=== PATIENT | female | born 1990 | race Caucasian/White ===

== ENCOUNTER 2022-02-12 08:29 | Outpatient (CLI) | payer OTHER, SELFPAY ==
--- NOTE | 2022-02-12 08:15 | CRLHL7_ITS ---
For Patients: As a result of the Century Cures Act, medical imaging exams and procedure reports are released immediately into your electronic medical record. You may view this report before your referring provider. If you have questions, please contact your health care provider. INDICATION: 2nd trimester anatomical survey. TECHNIQUE: Ultrasound OB pelvis transabdominal. Real-time del real-scale imaging of the fetus was performed as well as color Doppler and spectral Doppler analysis of the umbilical artery. COMPARISON: Ob ultrasound 12/02/2021. FINDINGS: Sonographic imaging demonstrates a single living intrauterine gestation. Fetus demonstrates a regular cardiac rate of 143 beats per minute. Fetus has a cephalic orientation. The placenta lies anterior without evidence of placenta previa. Placenta tip to the internal os measures 4.4 cm. Three-vessel cord with central placental insertion. Amniotic fluid volume appears normal. Single deepest pocket measures 3.3 cm. Length of closed cervix measures 3.4 cm. Biometry: Biparietal diameter: 4.0 cm, 18 week 0 day, 14% Head circumference: 15.1 cm, 18 week 1 day, 9% Abdominal circumference: 12.7 cm, 18 week 2 day, 23% Femoral length: 2.7 cm, 18 week 3 day, 21% The composite ultrasound gestational age is calculated at 18 week 3 day with an estimated sonographic due date of 07/13/2022. The weight is estimated at 233 grams, the 12.5 percentile. On anatomic survey, there is a normal appearance of the cerebral ventricles, cisterna magna and cerebellum. The nose, lips, and facial profile appear normal. The cervical, thoracic and lumbar spines are well visualized and appear normal. There is a normal four-chamber heart and the left and right ventricular outflow tracts appear normal. diaphragm, stomach, kidneys and bladder appear normal. There is a normal three-vessel cord and cord insertion site. The four extremities appear normal. IMPRESSION: 1.Single viable intrauterine . 2.No intrinsic abnormalities noted on anatomic survey. 3. Ultrasound dates from today`s exam consistent with 1st ultrasound. Dictated by Brian Starr MD @ 02/12/2022 10:23:16 AM (Electronically Signed)
--- OUTSIDE RECORDS SUMMARY | 2022-02-12 08:31 | XMS_ITS | Clinical Summary ---
:1990 Author Organization [facility] [place] [address] Care Team Providers Name Role Phone Clinic, No Pcp Or Primary Care Provider Unavailable Allergies No known active allergies Medications No known medications Active Problems No known active problems Encounters Date Type Specialty Care Team Description 02/03/2022 Hospital Encounter [facility], Temporoma ndibular jaw [facility] dysfunction Virginia Tobias, PT 02/03/2022 Travel 01/26/2022 Hospital Encounter [facility], Encounter for person encountering health services; [facility] Temporomandibular jaw dysfunction Virginia Tobias, PT 01/26/2022 Travel 01/21/2022 Hospital Encounter [facility], Encounter for person encountering health services; [facility] Temporomandibular jaw dysfunction Virginia Tobias, PT 01/21/2022 Travel 01/14/2022 Hospital Encounter [facility], Encounter for person encountering health services; [facility] Temporomandibular jaw dysfunction Virginia Tobias, PT 01/14/2022 Travel 12/29/2021 Hospital Encounter [facility], Encounter for person encountering health services; [facility] Temporomandibular jaw dysfunction Virginia Tobias, PT 12/29/2021 Travel 12/22/2021 Hospital Encounter [facility], Encounter for person encountering health services; [facility] Temporomandibular jaw dysfunction Virginia Tobias, PT 12/22/2021 Travel 12/17/2021 Hospital Encounter [facility], Encounter for person encountering health services; [facility] Temporomandibular jaw dysfunction Virginia Tobias, PT 12/17/2021 Travel 12/09/2021 Hospital Encounter [facility], Encounter for person encountering health services; [facility] Temporomandibular jaw dysfunction Virginia Tobias, PT 12/09/2021 Travel 12/03/2021 Hospital Encounter [facility], Encounter for person encountering health services; [facility] Temporomandibular jaw dysfunction Virginia Tobias, PT 12/03/2021 Travel 11/23/2021 Hospital Encounter [facility], Temporoma ndibular jaw dysfunction (Primary Dx); [facility] Encounter for person encountering health services Virginia Tobias, PT 11/23/2021 Travel from Last 3 Months Immunizations Name Administration Dates Next Due Influenza, IIV4 04/13/2019, 04/16/2018 Social History Tobacco Use Types Packs/Day Years Used Date Never Assessed Sex Assigned at Date Recorded Not on file COVID-19 Exposure Response Date Recorded In the last 10 days, have you been in contact with No / Unsu re 02/03/2022 3:57 PM CDT someone who was confirmed or suspected to have Coronavirus/COVID-19? 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 Pulse 67 05/31/2020 10:03 AM WATCH ASSEMBLY INSTRUCTOR Temperature 35.8 ??C (96.4 ??F) 05/31/2020 10:03 AM WATCH ASSEMBLY INSTRUCTOR Respiratory Rate 16 05/31/2020 10:03 AM WATCH ASSEMBLY INSTRUCTOR Oxygen Saturation 97% 05/31/2020 10:03 AM WATCH ASSEMBLY INSTRUCTOR Inhaled Oxygen Concentration - - Weight - - Height - - Body Mass Index - - Plan of Treatment Upcoming Encounters Date Type Specialty Care Team Description 03/08/2022 Appointment Virginia Tobias, PT [address] [facility] [address] [place], [place] [address] Health Maintenance Due Date Last Done Comments Tdap 2002 Depression screening for age 12+ 2003 BMI (ht and wt on same day) for age 0106/27/2009 18+ Hepatitis C screening for age 18-79 2009 Tetanus booster 2011 COVID-19 vaccine series (2 - Moderna 09/12/2020 08/15/2020 series) Influenza for age 9-49 02/11/2022 04/13/2019, 04/16/2018 Pap test for age 21-65 02/03/2024 02/02/2021, 02/02/2021, 01/31/2018 Results Not on filefrom Last 3 Months Insurance Payer Benefit Plan / Subscriber ID Effective Dates Phone Addre ss Type Group PREFERRED ONE PREFERRED ONE [id number] 2017-Present [address] [place] [address] Care Teams Insecticide Sprayer Relationship Specialty Start Date End Date Clinic, No Pcp Or PCP - General 12/29/21 .
--- OUTSIDE RECORDS SUMMARY | 2022-02-12 08:31 | XMS_ITS | Clinical Summary ---
:1990 Author Organization [facility] Address [address] [place] [address]. [place] [address] Care Team Providers Name Role Phone [facility]- Allergies No known active allergies Medications Medication Sig Dispensed Refills Start Date End Date Status Acetaminophen (TYLENOL 0 Active PO) diphenhydrAMINE Take 1 capsule 20 capsule 0 05/01/2019 Active (BENADRYL) 25 MG (25 mg) by mouth capsule every 4 hours as needed for itching or allergies Active Problems No known active problems Immunizations Name Administration Dates Next Due Influenza Vaccine IM > 6 months Valent IIV4 04/16/2018 (Alfuria,Fluzone) Family History Medical History Relation Comments Cerebrovascular Disease Father Diabetes Father Relation Status Comments Father Alive Mother Alive Sister Alive Social History Tobacco Use Types Packs/Day Years Used Date Never Smoker Smokeless Tobacco: Never Used Alcohol Use Standard Drinks/Week Comments No 0 (1 standard drink = 0.6 oz pure alcoho l) Sex Assigned at Date Recorded Not on file Last Filed Vital Signs Vital Sign Reading Time Taken Comments Blood Pressure 123/67 05/01/2019 6:30 AM OVERHEAD DOOR TECHNICIAN Pulse 73 05/01/2019 6:30 AM OVERHEAD DOOR TECHNICIAN Temperature 36.6 ??C (97.9 ??F) 05/01/2019 5:25 AM OVERHEAD DOOR TECHNICIAN Respiratory Rate 18 05/01/2019 5:25 AM OVERHEAD DOOR TECHNICIAN Oxygen Saturation 100% 05/01/2019 6:30 AM OVERHEAD DOOR TECHNICIAN Inhaled Oxygen Concentration - - Weight 66.7 kg (147 lb) 04/19/2018 3:54 PM OVERHEAD DOOR TECHNICIAN Height 165.1 cm (5' 5) 04/19/2018 3:54 PM OVERHEAD DOOR TECHNICIAN Body Mass Index 24.46 04/19/2018 3:54 PM OVERHEAD DOOR TECHNICIAN Plan of Treatment Health Maintenance Due Date Last Done Comments ADVANCE CARE PLANNING 1990 ANNUAL REVIEW OF HM ORDERS 1991 LIPID 1991 PREVENTIVE CARE VISIT 1991 COVID-19 Vaccine (#1) 1991 HIV SCREENING 2006 HEPATITIS C SCREENING 2009 DTAP/TDAP/TD IMMUNIZATION (1 2016 - Tdap) PAP 01/31/2021 01/31/2018, 01/31/2018 PHQ-2 (once per calendar 06/13/2021 04/19/2018 year) INFLUENZA VACCINE (#1) 2022 04/13/2019, 04/16/2018, 03/20/2016 HEPATITIS B IMMUNIZATION Aged Out No long er eligible based on patient's age to complete this to pic IPV IMMUNIZATION Aged Out No longer eligi ble based on patient's age to complete this to pic MENINGITIS IMMUNIZATION Aged Out No longe r eligible based on patient's age to complete this to pic Pneumococcal Vaccine: Aged Out No longer eligible based Pediatrics (0 to 5 Years) and on patient's age to At-Risk Patients (6 to 64 comple te this topic Years) Insurance Payer Benefit Plan / Subscriber ID Effective Phone Address T ype Group Dates PREFERREDONE PREFERREDONE HMO [id number] 2016-[place] [phone] [address] [address] [address] [place] [address] Care Teams Seed Production Field Supervisor Relationship Specialty Start Date End Date [facility] And PCP - General 05/01/19 [facility] [id number] [place], [place] [id number]
--- OUTSIDE RECORDS SUMMARY | 2022-02-12 08:31 | XMS_ITS | Encounter Summary ---
:1990 Author Organization [place] Address [address] [facility] [place] [address] Care Team Providers Name Role Phone Soraya Castrejon PA-C Unavailable [facility]- Reason for Visit Reason Comments Facial Swelling Encounter Details Date Type Department Care Team Description 05/01/2019 Emergency [facility] Kev Woodall, Allergic reaction, initial encounter; [facility] t MD Facial swelling; [address] [facility] EM[facility]GENC[facility] PHYSIC[facility]ANS , incidental [place], [place] [id number] [address] [address] [place] [phone] (Wo rk) Social History Tobacco Use Types Packs/Day Years Used Date Never Smoker Smokeless Tobacco: Never Used Alcohol Use Standard Drinks/Week Comments No 0 (1 standard drink = 0.6 oz pure alcoho l) Sex Assigned at Date Recorded Not on file documented as of this encounter Last Filed Vital Signs Vital Sign Reading Time Taken Comments Blood Pressure 123/67 05/01/2019 6:30 AM PERSONAL INJURY LAW SPECIALIST Pulse 73 05/01/2019 6:30 AM PERSONAL INJURY LAW SPECIALIST Temperature 36.6 ??C (97.9 ??F) 05/01/2019 5:25 AM PERSONAL INJURY LAW SPECIALIST Respiratory Rate 18 05/01/2019 5:25 AM PERSONAL INJURY LAW SPECIALIST Oxygen Saturation 100% 05/01/2019 6:30 AM PERSONAL INJURY LAW SPECIALIST Inhaled Oxygen Concentration - - Weight - - Height - - Body Mass Index - - documented in this encounter Discharge Instructions Discharge InstructionsKev Woodall MD - 05/01/2019 6:41 AM PERSONAL INJURY LAW SPECIALIST Discharge Instructions Allergic Reaction An allergic reaction can result in a rash, itching, swelling, watery eyes, or a runny nose. A serious reaction can cause swelling of your mouth or throat, or wheezing. The most serious allergy is called analphylaxis, and can be life- threatening. Many allergies result in hives, also called urticaria. An allergy happens when the body???s natural defense system (immune system) overreacts to something harmless. The thing that triggers your allergic reaction is called an allergen. The first time you are exposed to your allergen, you may not have any reaction, but the body makes a protein called an antibody. The antibody lets the body recognize and remember the allergen. Every time you are exposed to your allergen you get more antibody and your reaction can be more severe. Call 911 if you have: Swelling of the lips, tongue or throat. Hoarse voice, drooling or trouble breathing. Chest pain or shortness of breath. Fainting or unconsciousness. Return to the Emergency Department if: You develop a fever. You have significant abdominal pain. You vomit more than once. Your rash changes or looks very different. What can I do to help myself? If you know what caused your allergy, don???t touch it, throw any of it away, and tell others not tohave it around you. Wear a medical alert bracelet with a name of your allergen on it. If you don???t know what you are allergic to, keep a journal of everything that you are exposed to (foods, soaps, medicines, etc.). Take this with you when you follow up with your primary doctor. This may help determine what is causing the allergic reaction. Take any medicines that are prescribed. Antihistamines can decrease rash or itching. You may use Benadryl?? (diphenhydramine) for rash or itching according to package directions, or use a prescription antihistamine as recommended by your physician. For significant allergic reactions, you may have been given an epinephrine (adrenaline) auto injector (EpiPen??). Carry this with you at all times! Use it if you are having any symptoms of anaphylaxis.Do not be afraid to use it. Always call 911 if you use your EpiPen??! It is only meant to buy time until you can get to the Emergency Department! If you were given a prescription for medicine here today, be sure to read all of the information (including the package insert) that comes with your prescription. This will include important information about the medicine, its side effects, and any warnings that you need to know about. The pharmacist who fills the prescription can provide more information and answer questions you may have about the medicine. If you have questions or concerns that the pharmacist cannot address, please call or return to the Emergency Department. Opioid Medication Information Pain medications are among the most commonly prescribed medicines, so we are including this information for all our patients. If you did not receive pain medication or get a prescription for pain medicine, you can ignore it. You may have been given a prescription for an opioid (narcotic) pain medicine and/or have received apain medicine while here in the Emergency Department. These medicines can make you drowsy or impaired. You must not drive, operate dangerous equipment, or engage in any other dangerous activities whiletaking these medications. If you drive while taking these medications, you could be arrested for DUI, or driving under the influence. Do not drink any alcohol while you are taking these medications. Opioid pain medications can cause addiction. If you have a history of chemical dependency of any type, you are at a higher risk of becoming addicted to pain medications. Only take these prescribed medications to treat your pain when all other options have been tried. Take it for as short a time and asfew doses as possible. Store your pain pills in a secure place, as they are frequently stolen and provide a dangerous opportunity for children or visitors in your house to start abusing these powerful medications. We will not replace any lost or stolen medicine. As soon as your pain is better, you should flush all your remaining medication. Many prescription pain medications contain Tylenol?? (acetaminophen), including Vicodin??, Tylenol #3??, Boss??, Lortab??, and Percocet??. You should not take any extra pills of Tylenol?? if you are using these prescription medications or you can get very sick. Do not ever take more than 3000 mg of acetaminophen in any 24 hour period. All opioids tend to cause constipation. Drink plenty of water and eat foods that have a lot of fiber, such as fruits, vegetables, prune juice, apple juice and high fiber cereal. Take a laxative if you don???t move your bowels at least every other day. Miralax??, Milk of Magnesia, Colace??, or Senna?? can be used to keep you regular. Remember that you can always come back to the Emergency Department if you are not able to see your regular doctor in the amount of time listed above, if you get any new symptoms, or if there is anything that worries you. ONAL INJURY LAW SPECIALIST documented in this encounter Medications at Time of Discharge Medication Sig Dispensed Refills Start Date End Date diphenhydrAMINE (BENADRYL) Take 1 capsule (25 20 capsule 0 1 07/01/2018 25 MG capsule mg) by mouth every 4 hours as needed for itching or allergies Acetaminophen (TYLENOL PO) 0 documented as of this encounter ED Notes Butch Jeter RN - 05/01/2019 5:24 AM CST Here for swelling to bilateral eyelid when patient woke up this morning. Itchiness and rash to buttock, head, and neck all night. Currently 7.5weeks . Denies any oral or throat swelling. Unknown allergies. ABCs intact. ONAL INJURY LAW SPECIALIST Kev Woodall MD - 05/01/2019 5:22 AM CST History Chief Complaint: Facial Swelling HPI Akil Ramirez is a 7.5-weeks 28 year old female ( A0) who presents to the emergency department for evaluation of facial swelling. The patient reports she went to bed at around 2100 at baseline but throughout the night has developed increasing itchiness to her face, scalp, and arms, accompanied by increasing swelling to her face and eyelids. She further reports rash to her bilateral buttocks and posterior thighs, which she noted when she finally fully awoke around 0430 today. She deniesany new products, but notes she had a catered meal last night. The patient denies any difficulty breathing or swallowing. She notes she had a sore throat the past several days, but this is resolved at this time. She indicates she has not had any complications with her current . Allergies: NKDA Medications: The patient is currently on no regular medications. Past Medical History: The patient denies any significant past medical history. Past Surgical History: The patient does not have any pertinent past surgical history. Family History: Diabetes Cerebrovascular disease Social History: Presents alone. Never smoker. Negative for alcohol use. Marital Status: Single [1] Review of Systems HENT: Positive for facial swelling. Negative for sore throat and trouble swallowing. Respiratory: Negative for shortness of breath. Skin: Positive for color change and rash. All other systems reviewed and are negative. Physical Exam Patient Vitals for the past 24 hrs: BP Temp Temp src Pulse Heart Rate Resp SpO2 05/01/19 0630 123/67 -- -- 73 -- -- 100 % 05/01/19 0615 124/64 -- -- 79 -- -- 100 % 05/01/19 0600 122/75 -- -- 89 -- -- 100 % 05/01/19 0525 (!) 140/101 97.9 ??F (36.6 ??C) Temporal 102 102 18 98 % Physical Exam General: The patient is alert, in no respiratory distress. HENT: Mucous membranes moist. Eyelid swelling. Mild erythema behind pinna. Cardiovascular: Regular rate and rhythm. Good pulses in all four extremities. Normal capillary refill and skin turgor. Respiratory: Lungs are clear. No nasal flaring. No retractions. No wheezing, no crackles. Gastrointestinal: Abdomen soft. No guarding, no rebound. No palpable hernias. Nontender. Musculoskeletal: No gross deformity. Skin: No petechiae. Hives on the buttocks. Neurologic: The patient is alert and oriented x3. GCS 15. No testable cranial nerve deficit. Followscommands with clear and appropriate speech. Gives appropriate answers. Good strength in all extremities. No gross neurologic deficit. Gross sensation intact. Pupils are round and reactive. No meningismus. Lymphatic: No cervical adenopathy. No lower extremity swelling. Psychiatric: The patient is non-tearful. Emergency Department Course Interventions: 0561 Decadron 4 mg PO Benadryl 25 mg IV Emergency Department Course: Past medical records, nursing notes, and vitals reviewed. 0541 I performed an exam of the patient as documented above. We discussed medications for treatment here in the ED. 0628 I rechecked the patient and discussed the results of her workup thus far. Patient's eyelid swelling is much improved at this time following treatment in the ED. Findings and plan explained to the Patient. Patient discharged home with instructions regarding supportive care, medications, and reasons to return. The importance of close follow-up was reviewed. The patient was prescribed Benadryl. Impression & Plan Medical Decision Making: Patient is currently but I do not feel this is likely playing a part in her symptoms. She said she was up all night with a rash and itching and noted eyelid swelling. We therefore do not know the exact time that her symptoms started. There however does not appear to be any airway compromise. I discussed risks and benefits of steroids and Benadryl which she did agree to. And this did help hersymptoms quite a bit her eyelid swelling was improving there was no respiratory distress. There was still a rash on her buttocks. I did discuss the exact cause of her allergic reaction is unknown if she would need further outpatient testing. We discussed what symptoms she should return for. She was discharged home in improved condition. There is no signs of related complication. Discharge Diagnosis: ICD-10-CM 1. Allergic reaction, initial encounter T78.40XA 2. Facial swelling R22.0 3. , incidental Z33.1 Disposition: Discharged to home. Discharge Medications: Discharge Medication List as of 05/01/2019 6:44 AM START taking these medications Details diphenhydrAMINE (BENADRYL) 25 MG capsule Take 1 capsule (25 mg) by mouth every 4 hours as needed foritching or allergies, Disp-20 capsule, R-0, Local Print Scribe Disclosure: Anibal Coreas, am serving as a scribe at 5:36 AM on 05/01/2019 to document services personally performed by Kev Woodall MD based on my observations and the provider's statements to me. Kev Woodall MD 05/01/19 [id number] ONAL INJURY LAW SPECIALIST documented in this encounter Plan of Treatment Not on filedocumented as of this encounter Visit Diagnoses Diagnosis Allergic reaction, initial encounter Facial swelling Swelling, mass, or lump in head and neck , incidental state, incidental documented in this encounter Administered Medications Inactive Administered Medications - up to 3 most recent administrations Medication Order MAR Action Action Date Dose Rate Site dexamethasone (DECADRON) tablet 4 mg Given 05/01/2019 5:51 AM PERSONAL INJURY LAW SPECIALIST 4 mg 4 mg, Oral, ONCE, On Tue05/01/19 at 0547, For 1 dose diphenhydrAMINE (BENADRYL) injection 25 mg Given 05/01/2019 5:51 AM PERSONAL INJURY LAW SPECIALIST 25 mg 25 mg, Intravenous, ONCE, On Tue05/01/19 at 0547, For 1 dose, For ordered IV doses 1-50 mg, give IV Push undiluted. Give each 25mg over a minimum of 1 minute. Extend in non-emergency lidocaine (LMX4) cream Topical, EVERY 1 HOUR PRN, pain, with VA D insertion or accessing implanted port,, Starting on Tue05/01/19 at 0545, For 1 dose, Do NOT give if patient has a history of allergy to any local anesthetic or any neetu prod uct. Apply at least 30 minutes prior to VAD insertion or port a ccess. In divided doses as need for size of site for VAD insertion with MAX Dose: 2.5 g (?? of 5 g tube) lidocaine 1 % 0.1-1 mL 0.1-1 mL, Other, EVERY 1 HOUR PRN, mild pain with VAD insertion, Starting on Tue05/01/19 at 0545, Do NOT give if patient has a history of allergy to any local anesthetic or any neetu product. MAX dose 1 mL subcu taneous OR intradermal in divided doses as needed for VAD insertion. sodium chloride (PF) 0.9% PF flush 3 mL 3 mL, Intracatheter, EVERY 1 MIN PRN, li ne flush, Starting on Tue05/01/19 at 0545, for peripheral IV flush post IV meds sodium chloride (PF) 0.9% PF flush 3 mL 3 mL, Intracatheter, EVERY 8 HOURS, First dose on Tue05/01/19 at 0547, And Q1H PRN, to lock peripheral IV dormant line. documented in this encounter Active and Recently Administered Medications Times are shown in PERSONAL INJURY LAW SPECIALIST. Scheduled Medication Order 04/29/2019 04/30/2019 05/01/2019 dexamethasone (DECADRON) tablet 4 mg (COMPLETED) 0551 (Given - Provider: Dahiana Camejo, RENA) 4 mg, Oral, ONCE, Tue05/01/19 at 0547, For 1 dose diphenhydrAMINE (BENADRYL) injection 25 mg (COMPLETED) 0551 (Given - Provider: Dahiana Camejo RN) 25 mg, Intravenous, ONCE, Tue05/01/19 a t 0547, For 1 dose, For ordered IV doses 1-50 mg, give IV Push undiluted. Give each 25mg over a minimum of 1 minute. Extend in non-emergency sodium chloride (PF) 0.9% PF flush 3 mL 0547 (Canceled Entry - Provider: Orders Generic Provider - Comment: Automatically canceled at discontinue of medication order) 3 mL, Intracatheter, EVERY 8 HOURS, Firs t dose on Tue05/01/19 at 0547, And Q1H PRN, to lock peripheral IV dormant line. PRN Medication Order 04/29/2019 04/30/2019 05/01/2019 lidocaine (LMX4) cream Topical, EVERY 1 HOUR PRN, pain, with VA D insertion or accessing implanted port,, Starting Tue05/01/19 at 0545, For 1 dose, Do NOT give if patient has a history of allergy to any local anesthetic or an y neetu product. Apply at least 30 min utes prior to VAD insertion or port access. In divided doses as need for size of site for VAD insertion with MAX Dose: 2.5 g (?? of 5 g tube) lidocaine 1 % 0.1-1 mL 0.1-1 mL, Other, EVERY 1 HOUR PRN, mild pain with VAD insertion, Starting Tue05/01/19 at 0545, Do NOT give if patient has a history of allergy to any local anesthetic or any neetu product. MAX dose 1 mL subcutaneous OR intradermal in divided doses as needed for V AD insertion. sodium chloride (PF) 0.9% PF flush 3 mL 3 mL, Intracatheter, EVERY 1 MIN PRN, li ne flush, Starting Tue05/01/19 at 0545, for peripheral IV flush post IV meds documented in this encounter Care Teams Ballistic Technician Relationship Specialty Start Date End Date [facility] PCP - General 05/01/19 [id number] [place] [address] Soraya Castrejon PA-C Assigned PCP 04/30/18 04/25/21 [address] [place] [address] documented as of this encounter
--- OUTSIDE RECORDS SUMMARY | 2022-02-12 08:31 | XMS_ITS | Encounter Summary ---
:1990 Author Organization [place] Address [facility] [place] [address] Care Team Providers Name Role Phone Clinic [facility] Primary Care Provider [phone] Reason for Visit Reason Comments Eye Problem Encounter Details Date Type Department Care Team Description 04/19/2018 Office Visit [facility] Soraya Castrejon Ir ritation of left eye (Primary Dx); Clinic [facility] care [address] [place] [address] 5 [phone] Social History Tobacco Use Types Packs/Day Years Used Date Never Smoker Smokeless Tobacco: Never Used Alcohol Use Standard Drinks/Week Comments No 0 (1 standard drink = 0.6 oz pure alcoho l) Sex Assigned at Date Recorded Not on file documented as of this encounter Last Filed Vital Signs Vital Sign Reading Time Taken Comments Blood Pressure 118/68 04/19/2018 3:54 PM DOSIER OPERATOR Pulse 92 04/19/2018 3:54 PM DOSIER OPERATOR Temperature 36.8 ??C (98.2 ??F) 04/19/2018 3:54 PM DOSIER OPERATOR Respiratory Rate - - Oxygen Saturation 98% 04/19/2018 3:54 PM DOSIER OPERATOR Inhaled Oxygen Concentration - - Weight 66.7 kg (147 lb) 04/19/2018 3:54 PM DOSIER OPERATOR Height 165.1 cm (5' 5) 04/19/2018 3:54 PM DOSIER OPERATOR Body Mass Index 24.46 04/19/2018 3:54 PM DOSIER OPERATOR documented in this encounter Progress Notes Soraya Castrejon PA-C - 04/19/2018 3:40 PM CST SUBJECTIVE: Akil Ramirez is a 27 year old female who presents to clinic today for the following health issues. Acute Illness Acute illness concerns?- eye redness, cold symptoms Onset: eye redness 2 days, cold symptoms 5 days ?? Fever no ?? Chills/Sweats: no ?? Headache (location?): no ?? Sinus Pressure: no ?? Conjunctivitis: no ?? Ear Pain: Initially yes, but has resolved ?? Rhinorrhea: YES ?? Congestion: YES ?? Sore Throat: YES- at first but resolved ?? Cough: YES-productive of sputum ?? Wheeze: no ?? Decreased Appetite: no ?? Nausea: no ?? Vomiting: no ?? Diarrhea: no ?? Dysuria/Freq.: no ?? Fatigue/Achiness: YES- first couple days but has resolved ?? 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 Denies gunkiness and cannot tell if it is impeding vision.. She wears contacts daily and has not switched to glasses since symptoms presented. Initial sx was a sore throat that developed into a cough and runny nose. 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 Denies Hx of pink eye. Problem list and histories reviewed & adjusted, as indicated. Additional history: as documented There is no problem list on file for this patient. History reviewed. No pertinent surgical history. Social History Substance Use Topics ??? Smoking status: Never Smoker ??? Smokeless tobacco: Never Used ??? Alcohol use No Family History Problem Relation Age of Onset ??? Diabetes Father ??? Cerebrovascular Disease Father Current Outpatient Prescriptions Medication Sig Dispense Refill ??? trimethoprim-polymyxin b (POLYTRIM) ophthalmic solution Apply 1 drop to eye 4 times daily for 7 days 10 mL 0 ??? Acetaminophen (TYLENOL PO) No Known Allergies Reviewed and updated as needed this visit by clinical staff Tobacco Allergies Meds Problems Med Hx Surg Hx Fam Hx Soc Hx Reviewed and updated as needed this visit by Provider Tobacco Meds Problems Med Hx Surg Hx Fam Hx Soc Hx ROS: Constitutional, HEENT, cardiovascular, pulmonary, GI, , musculoskeletal, neuro, skin, endocrine and psych systems are negative, except as otherwise noted. This document serves as a record of the services and decisions personally performed and made by Soraya Castrejon, MS, PA-C. It was created on her behalf by Eneida Tolliver, a trained certified medical records coder. The creation of this document is based on the provider's statements to the certified medical records coder. Eneida Tolliver April 19, 2018 4:12 PM OBJECTIVE: BP 118/68 (BP Location: Left arm, Patient Position: Chair, Cuff Size: Adult Regular) Pulse 92 Temp 98.2 ??F (36.8 ??C) (Oral) Ht 5' 5 (1.651 m) Wt 147 lb (66.7 kg) SpO2 98% BMI 24.46 kg/m2 Body mass index is 24.46 kg/(m^2). GENERAL: healthy, alert and no distress EYES: Mild erythema of outer left conjunctiva, no mattering of upper or lower lashes, eyes grossly normal to inspection, PERRL and sclerae normal HENT: ear canals and TM's normal, nose and mouth without ulcers or lesions MS: no gross musculoskeletal defects noted, no edema SKIN: no suspicious lesions or rashes NEURO: Normal strength and tone, mentation intact and speech normal PSYCH: mentation appears normal, affect normal/bright Diagnostic Test Results: none ASSESSMENT/PLAN: Akil was seen today for eye problem. Diagnoses and all orders for this visit: Irritation of left eye Start Polytrim 1 drop to left eye 4x/daily for 7 days. Recommended to switch to her glasses until sxresolve. Informed pt eye drops may cause mattering of eyes. At night make sure to wash lids and lashes - can use baby soap for less irritiation. Right before bed use warm compress to increase blood flow to the area. Discard any make-up used that has come in contact with eye. - trimethoprim-polymyxin b (POLYTRIM) ophthalmic solution; Apply 1 drop to eye 4 times daily for 7 days Preventative health care Updating chart to [facility] No Follow-up on file. The information in this document, created by the certified medical records coder for me, accurately reflects the services I personally performed and the decisions made by me. I have reviewed and approved this document for accuracy prior to leaving the patient care area. April 19, 2018 4:12 PM Soraya Castrejon, MS, NICOL [facility] ER OPERATOR documented in this encounter Plan of Treatment Not on filedocumented as of this encounter Procedures Procedure Name Priority Date/Time Associated Diagnosis Comme nts ABSTRACT PAP (HIM Routine 01/31/2018 Preventative health car e Results for this EXTERNAL RESULT) procedure a re in the results section . documented in this encounter Results ABSTRACT PAP-NO CHARGE (01/31/2018) [facility] gist Method Time Signature PAP-ABSTRACT See Scanned Document Specimen (Source) Anatomical Location Collection Method / Collectio n Time Received Time / Laterality Volume 01/31/2018 Narrative Soraya Castrejon PA-C - 01/31/2018 Normal - [facility]- See Care Everywhere Soraya Castrejon PA-C LAB - [facility] EXTERNAL RESULT documented in this encounter Visit Diagnoses Diagnosis Irritation of left eye - Primary Other ill-defined disorder of eye Preventative health care Routine general medical examination at a health care facility documented in this encounter Care Teams Bilingual Trainer Relationship Specialty Start Date End Date [facility] PCP - General 08/02/16 04/30/19 [place] [address] documented as of this encounter
--- OUTSIDE RECORDS SUMMARY | 2022-02-12 08:31 | XMS_ITS | Encounter Summary ---
:1990 Author Organization [facility] Address [address] [place] [id number] Care Team Providers Name Role Phone Unavailable Primary Care Provider Unavailable Reason for Visit Reason Comments Sinus Problem Encounter Details Date Type Department Care Team Description 04/01/2014 Office Visit [facility] [place] RAYSHAWN Do OB TECH sinusitis (Primary Dx) [address] [place] [phone] Social History Tobacco Use Types Packs/Day Years Used Date Never Smoker Smokeless Tobacco: Never Used Alcohol Use Standard Drinks/Week Comments Yes 0 (1 standard drink = 0.6 oz pure alcoho l) Sex Assigned at Date Recorded Not on file documented as of this encounter Last Filed Vital Signs Vital Sign Reading Time Taken Comments Blood Pressure 126/64 04/01/2014 4:13 PM CDT Pulse 60 04/01/2014 4:13 PM CDT Temperature 37.2 ??C (99 ??F) 04/01/2014 4:13 PM CDT Respiratory Rate - - Oxygen Saturation 100% 04/01/2014 4:13 PM CDT Inhaled Oxygen Concentration - - Weight 62.1 kg (137 lb) 04/01/2014 4:13 PM CDT Height 166.4 cm (5' 5.5) 04/01/2014 4:13 PM CDT Body Mass Index 22.45 04/01/2014 4:13 PM CDT documented in this encounter Patient Instructions Patient Lily Mascorro NP - 04/01/2014 4:20 PM CDT Images from the original note were not included. Sinusitis What is sinusitis? Sinusitis is swollen, infected linings of the sinuses. The sinuses are hollow spaces in the bones ofyour face and skull. They connect with the nose through small openings. Like the nose, their liningsmake mucus. How does it occur? Sinusitis occurs when the sinus linings become infected. The passageways from the sinuses to the nose are very narrow. Swelling and mucus may block the passageways. This leads to pressure changes in the sinuses that can be painful. A number of things can cause swelling and sinusitis. Most often it's allergens (things that cause allergies, like pollen and mold) and viruses, such as viruses that cause the common cold. Whether the cause is allergies or a virus, the sinus linings can swell. When swelling causes the sinus passageway to swell shut, bacteria, viruses, and even fungus can be trapped in the sinuses and cause a sinus infection. If your nasal bones have been injured or are deformed, causing partial blockage of the sinus openings, you are more likely to get sinusitis. What are the symptoms? Symptoms include: feeling of fullness or pressure in your head a headache that is most painful when you first wake up in the morning or when you bend your head down or forward pain above or below your eyes aching in the upper jaw and teeth runny or stuffy nose cough, especially at night fluid draining down the back of your throat (postnasal drainage) sore throat in the morning or evening. How is it diagnosed? Your healthcare provider will ask about your symptoms and will examine you. You may have an X-ray tolook for swelling, fluid, or small benign growths (polyps) in the sinuses. How is it treated? Decongestants may help. They may be nonprescription or prescription. They are available as liquids, pills, and nose sprays. Your healthcare provider may prescribe an antibiotic. In some cases you may need to take decongestants and antibiotics for several weeks. You may need nonprescription medicine for pain, such as acetaminophen or ibuprofen. Check with your healthcare provider before you give any medicine that contains aspirin or salicylates to a child or teen. This includes medicines like baby aspirin, some cold medicines, and Pepto Bismol. Children and teens who take aspirin are at risk for a serious illness called Clarita's syndrome. Ibuprofen is an NSAID. Nonsteroidal anti-inflammatory medicines (NSAIDs) may cause stomach bleeding and other problems. These risks increase with age. Read the label and take as directed. Unless recommended by your healthcare provider, do not take NSAIDs for more than 10 days for any reason. If you have chronic or repeated sinus infections, allergies may be the cause. Your healthcare provider may prescribe antihistamine tablets or prescription nasal sprays (steroids or cromolyn) to treat the allergies. If you have chronic, severe sinusitis that does not respond to treatment with medicines, surgery maybe done. The surgeon can create an extra or enlarged passageway in the wall of the sinus cavity. This allows the sinuses to drain more easily through the nasal passages. This should help them stay freeof infection. How long will the effects last? Symptoms may get better gradually over 3 to 10 days. Depending on what caused the sinusitis and how severe it is, it may last for days or weeks. The symptoms may come back if you do not finish all of your antibiotic. How can I take care of myself? Follow your healthcare provider's instructions. If you are taking an antibiotic, take all of it as directed by your provider. If you stop taking themedicine when your symptoms are gone but before you have taken all of the medicine, symptoms may come back. Avoid tobacco smoke. If you have allergies, take care to avoid the things you are allergic to, such as animal dander. Add moisture to the air with a humidifier or a vaporizer, unless you have mold allergy (mold may grow in your vaporizer). Inhale steam from a basin of hot water or shower to help open your sinuses and relieve pain. Use saline nasal sprays to help wash out nasal passages and clear some mucus from the airways. Use decongestants as directed on the label or by your provider. If you are using a nonprescription nasal-spray decongestant, generally you should not use it for more than 3 days. After 3 days it may cause your symptoms to get worse. Ask your healthcare provider if it is OK for you to use a nasal spray decongestant longer than this. Get plenty of rest. Drink more fluids to keep the mucus as thin as possible so your sinuses can drain more easily. Put warm compresses on painful areas. Take antibiotics as prescribed. Use all of the medicine, even after you feel better. Some sinus infections require 2 to 4 weeks of antibiotic treatment. See your healthcare provider if the pain lasts for several days or gets worse. If the sinus areas above or below your eyes are swollen or bulging, see your healthcare provider right away. This symptom may mean that the infection is spreading. A spreading infection can affect other parts of your body--even the brain--and needs to be treated promptly. How can I help prevent sinusitis? Treat your colds and allergies promptly. Use decongestants as soon as you start having symptoms. Do not smoke and stay away from secondhand smoke. Drink lots of fluids to keep the mucus thin. Humidify your home if the air is particularly dry. If you have sinus infections often, consider having allergy tests. If sinusitis continues to be a problem despite treatment, you might need an exam by an ear, nose, and throat doctor (called an ENT or segment producer). The specialist will check for polyps or a deformed bone that may be blocking your sinuses. Published by [employer]. This content is reviewed periodically and is subject to change as new health information becomes available. The information is intended to inform and educate and is not a replacement for medical evaluation, advice, diagnosis or treatment by a healthcare professional. Developed by [employer]. ? 2010 [employer] and/or its affiliates. All Rights Reserved. Copyright ?? [employer] 2011 Adult Health Advisor documented in this encounter Progress Notes Lily Emanuel NP - 04/01/2014 1:49 PM CDT SUBJECTIVE: Akil Gibbons is a 23 year old female who presents to clinic today for the following health issues: Acute Illness Acute illness concerns?- Sinus problem Onset: x2.5-3 weeks ?? Fever: YES- 99.0 today ?? Chills/Sweats: YES- prior to last week ?? Headache (location?): YES- possibly from coughing ?? Sinus Pressure:YES ?? Conjunctivitis: no ?? Ear Pain: no ?? Rhinorrhea: YES- yellow ?? Congestion: YES- head - chest in morning ?? Sore Throat: no ?? Cough: YES-productive of yellow sputum, productive of green sputum, worsening over time ?? Wheeze: no ?? Decreased Appetite: no ?? Nausea: no ?? Vomiting: YES- 1 time from coughing ?? Diarrhea: no ?? Dysuria/Freq.: no ?? Fatigue/Achiness: YES- both ?? Sick/Strep Exposure: YES- pneumonia, bronchitis Therapies Tried and outcome: allergy med, cough syrup- no relief Problem list and histories reviewed & adjusted, as indicated. Additional history: as documented There is no problem list on file for this patient. History reviewed. No pertinent past surgical history. History Substance Use Topics ??? Smoking status: Never Smoker ??? Smokeless tobacco: Never Used ??? Alcohol Use: Yes Family History Problem Relation Age of Onset ??? Diabetes Father ??? Stroke Father Current Outpatient Prescriptions Medication Sig Dispense Refill ??? levonorgestrel-ethinyl estradiol (AVIANE,ALESSE,LESSINA) 0.1-20 MG-MCG per tablet Take 1 tablet by mouth daily 3 Package 3 ??? amoxicillin-clavulanate (AUGMENTIN) 875-125 MG per tablet Take 1 tablet by mouth 2 times daily 20 tablet 0 No Known Allergies No results found for this basename: A1C, LDL, HDL, TRIG, ALT, CR, GFRESTIMATED, GFRESTBLACK, MICROALBUMIN, POTASSIUM, TSH, in the last [id number] hours BP Readings from Last 3 Encounters: 04/01/14 126/64 Wt Readings from Last 3 Encounters: 04/01/14 137 lb (62.143 kg) Labs reviewed in [facility] Problem list, Medication list, Allergies, and Medical/Social/Surgical histories reviewed in [facility] andupdated as appropriate. ROS: C: NEGATIVE for fever, chills, change in weight E/M: NEGATIVE for ear, mouth and throat problems R: NEGATIVE for significant cough or SOB CV: NEGATIVE for chest pain, palpitations or peripheral edema OBJECTIVE: BP 126/64 Pulse 60 Temp(Src) 99 ??F (37.2 ??C) (Oral) Ht 5' 5.5 (1.664 m) Wt 137 lb (62.143kg) BMI 22.44 kg/m2 SpO2 100% ? No Body mass index is 22.44 kg/(m^2). GENERAL: healthy, alert, well nourished, well hydrated, no distress HENT: ear canals- normal; TMs- normal; Nose- normal; Mouth- no ulcers, no lesions NECK: no tenderness, no adenopathy, no asymmetry, no masses, no stiffness; thyroid- normal to palpation RESP: lungs clear to auscultation - no rales, no rhonchi, no wheezes CV: regular rates and rhythm, normal S1 S2, no S3 or S4 and no murmur, no click or rub - PSYCH: Alert and oriented times 3; speech- coherent , normal rate and volume; able to articulate logical thoughts, able to abstract reason, no tangential thoughts, no hallucinations or delusions, affect- normal LYMPHATICS: ant. cervical- normal, post. cervical- normal, axillary- normal, supraclavicular- normal, inguinal- normal Diagnostic test results: none ASSESSMENT/PLAN: Akil was seen today for sinus problem. Diagnoses and associated orders for this visit: Acute maxillary sinusitis - amoxicillin-clavulanate (AUGMENTIN) 875-125 MG per tablet; Take 1 tablet by mouth 2 times daily See Patient Instructions Augmentin, symptomatic treatment. Return to clinic if no improvement or symptoms worsen. Patient verbalized understanding & agreed with plan of care. Lily Emanuel RN, [facility] documented in this encounter Nursing Notes Mu Uribe CMA - 04/01/2014 4:14 PM CDT Chief Complaint Patient presents with ??? Sinus Problem Initial BP 126/64 Pulse 60 Temp(Src) 99 ??F (37.2 ??C) (Oral) Ht 5' 5.5 (1.664 m) Wt 137 lb(62.143 kg) BMI 22.44 kg/m2 SpO2 100% ? No Estimated body mass index is 22.44 kg/(m^2) as calculated from the following: Height as of this encounter: 5' 5.5 (1.664 m). Weight as of this encounter: 137 lb (62.143 kg). BP completed using cuff size: regular Mu Uribe CMA documented in this encounter Plan of Treatment Not on filedocumented as of this encounter Visit Diagnoses Diagnosis Acute maxillary sinusitis - Primary documented in this encounter
--- OUTSIDE RECORDS SUMMARY | 2022-02-12 08:31 | XMS_ITS | Encounter Summary ---
:1990 Author Organization [place] Address [facility] 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 ([id number]) Encounter Details Date Type Department Care Team Description 08/09/2016 Hospital Encounter [facility] Eulogio Bashir MD [facility] [address] [place], [place] [id number] Rehabilitation Services Marlena Thacker, PT [facility] [address] [place] [address] Social History Tobacco Use Types Packs/Day Years Used Date Never Smoker Smokeless Tobacco: Never Used Alcohol Use Standard Drinks/Week Comments No 0 (1 standard drink = 0.6 oz pure alcoho l) Sex Assigned at Date Recorded Not on file documented as of this encounter Medications at Time of Discharge Medication Sig Dispensed Refills Start Date End Date Acetaminophen (TYLENOL 0 PO) levonorgestrel-ethinyl Take 1 tablet by 3 Package 3 014 04/19/2018 estradiol mouth daily (AVIANE,ALESSE,LESSINA) 0.1-20 MG-MCG per tablet meclizine (ANTIVERT) 25 Take 1 tablet (25 30 tablet 1 08/0204/19/2018 MG tablet mg) by mouth every 6 hours as needed for dizziness Ondansetron HCl (ZOFRAN 0 1 06/19/2017 PO) documented as of this encounter Progress Notes Marlena Thacker, PT - 08/09/2016 11:59 PM CST 08/09/16 1500 Signing Clinician's Name / Credentials Signing clinician's name / credentials Marlena Thacker PT, DPT Session Number Session Number DISCHARGE: Episode of care 08/02/16-08/09/16. Pt participated in 2 vestibular PT visitsincluding evaluation to address L BPPV. See note below for details of final visit. Adult Goals PT Eval Goals 1;2;3 Goal 1 Goal Identifier DHI (baseline 88/100) Goal Description Pt to score 0/100 per DHI with resolved sxs of dizziness >/= 24-28 hours. Target Date 08/24/16 Date Met 08/09/16 (0/100) Goal 2 Goal Identifier BPPV Goal Description Pt will demonstrate (-) s/s of BPPV throughout positional testing of all canals. Target Date 08/24/16 Date Met 08/09/16 Goal 3 Goal Identifier 4 item DGI (baseline: 02/22 = inc risk for falls) Goal Description Patient will have improved score on 4 item DGI to 05/24 indicating reduced fall risk for greater safety with community ambulation. Target Date 08/24/16 Date Met (progress made, 04/24) Subjective Report Subjective Report No vertigo since last seen. Reports 1 episode of lightheadedness last Tuesday, going to school for work-prep and needed to leave. Pts called therapist within 48 hours of PT treatment reporting spouse c/o orbital SYKES, no dizziness. Pt reports accompanied sxs of slurred speech that has now has gotten better but toward end of night needs to focus on speech with fatigue. Pt reports it is hard for eyes to focus but that has gotten better. Denies double vision. Reports balance hasimproved but is not her baseline yet, occasionally legs cross ea other without LOB but needs to focus on balance. Pt received MRI on Tuesday which came back negative. She didn???t return to work last week. She meets with neurologist as f/u this week. Returned to work 1/2 day today and went well. Objective Measures Objective Measures Objective Measure 1;Objective Measure 2 Objective Measure 1 Objective Measure 4 item DGI Details 04/24 System Outcome Measures Outcome Measures BPPV Dizziness Handicap Inventory (score out of 100) A decrease in score by 17.18 or greater indicates a clinically significant change in symptoms. 0 Treatment Interventions Interventions Neuromuscular Re-education Neuromuscular Re-education Skilled Intervention set-up, cues for reassessments, feedback on progress towards goals and education (below) Patient Response (as indicated) Treatment Detail IR exam, OM exam. DVA assessment. DGI. romberg foam EO: 30 sec, EC: 6-7 sec Progress 2/3 goals met. Positional testing consistant with resolved BPPV. (-) central signs with OM and balance assessments. Significant progress made towards improved gait stability, continues to veerslightly with head turns Oculomotor Exam Smooth Pursuit Normal Saccades Normal Rapid Head Thrust Normal Infrared Goggle Exam or Frenzel Lense Exam Vestibular Suppressant in Last 24 Hours? No Exam completed with Infrared Goggles Spontaneous Nystagmus Negative Gaze Evoked Nystagmus Other (end gaze nystagmus (WNL)) Head Shake Horizontal Nystagmus Negative Positional testing Negative [place]-Hallpike (right) Negative [place]-Hallpike (Left) Negative HSCC Supine Roll Test (Right) Negative HSCC Supine Roll Test (Left) Negative Dynamic Visual Acuity (DVA) DVA Comments 2 line difference WNL no dizziness Education Learner Patient Readiness Acceptance Method Explanation;Demonstration Response Verbalizes Understanding;Demonstrates Understanding Education Comments education on balance systems and continuing balance and walking exercises with inc input to vestibular system towards continued improved balance. should sxs of vertigo return f/u with MD for order t oreturn to therapy. approriate for d/c at this time Plan Home program romberg foam EC, walking with head turns and pitches Updates to plan of care d/c Total Session Time Total Treatment Time (sum of timed and untimed services) 40 ICE CLERK documented in this encounter Miscellaneous Notes Addendum Note - Marlena Thacker, PT - 08/09/2016 11:59 PM INVOICE CLERK Encounter addended by: Marlena Thacker, PT on: 07/08/2018 7:12 PM Actions taken: Sign clinical note, Flowsheet accepted, Episode resolved ICE CLERK documented in this encounter Plan of Treatment Not on filedocumented as of this encounter Visit Diagnoses Not on filedocumented in this encounter Care Teams Diamond Merchant Relationship Specialty Start Date End Date [employer], [facility] PCP - General 08/02/16 04/30/19 [id number] [place] [address] documented as of this encounter
--- OUTSIDE RECORDS SUMMARY | 2022-02-12 08:31 | XMS_ITS | Encounter Summary ---
:1990 Author Organization [facility] Address [address] [place] [address]. 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 HELPER Reason for Visit Reason Comments Headache Nausea & Vomiting Encounter Details Date Type Department Care Team Description 08/02/2016 Emergency [facility] Leoncio Bashir MD Vertigo Emergency Dept [facility] [address] [place] [address] [facility] [phone] [place], [place] [id number] (Wo rk) Social History Tobacco Use Types Packs/Day Years Used Date Never Smoker Smokeless Tobacco: Never Used Alcohol Use Standard Drinks/Week Comments No 0 (1 standard drink = 0.6 oz pure alcoho l) Sex Assigned at Date Recorded Not on file documented as of this encounter Last Filed Vital Signs Vital Sign Reading Time Taken Comments Blood Pressure 122/73 08/02/2016 8:16 AM CLOTH SHRINKING MACHINE OPERATOR HELPER Pulse 77 08/02/2016 8:16 AM CLOTH SHRINKING MACHINE OPERATOR HELPER Temperature 37.1 ??C (98.7 ??F) 08/02/2016 8:16 AM CLOTH SHRINKING MACHINE OPERATOR HELPER Respiratory Rate 18 08/02/2016 8:16 AM CLOTH SHRINKING MACHINE OPERATOR HELPER Oxygen Saturation 100% 08/02/2016 8:16 AM CLOTH SHRINKING MACHINE OPERATOR HELPER Inhaled Oxygen Concentration - - Weight 63.5 kg (140 lb) 08/02/2016 8:16 AM [facility] SHRINKING MACHINE OPERATOR HELPER Height 165.1 cm (5' 5) 08/02/2016 8:16 AM [facility]OTH SHRINKING MACHINE OPERATOR HELPER Body Mass Index 23.3 08/02/2016 8:16 AM [facility] SHRINKING MACHINE OPERATOR HELPER documented in this encounter Discharge Instructions Discharge InstructionsLeoncio Bashir MD - 08/02/2016 11:16 AM CLOTH SHRINKING MACHINE OPERATOR HELPER Images from the original note were not included. Vertigo (Unknown Cause) In addition to helping with hearing, the inner ear is part of the balance center of your body. Problems with the inner ear can a false feeling of motion.??This is called vertigo. Often, it feels as if you or the room is spinning. A vertigo attack may cause sudden nausea, vomiting and heavy sweating. Severe vertigo causes a loss of balance and can cause you to fall. During vertigo, small head movements and changes in body position will often make the symptoms worse. You may also have ringing in the ears called tinnitus. An episode of vertigo may last seconds, minutes or hours. Once you are over the first episode, it may never come back. However, symptoms may return off and on. The cause of your vertigo is not yet known.??Possible causes of vertigo include: ?? Inflammation of the inner ear ?? Disease of the nerves to the inner ear ?? Movement of calcium particles in the inner ear ?? Poor blood flow to the balance centers of the brain ?? Migraine headaches Home care ?? If symptoms are severe, rest quietly in bed. Change positions very slowly. There is usually one position that will feel best, such as lying on one side or lying on your back with your head slightly raised on pillows. ?? Do not drive??a car??or work with dangerous machinery until symptoms have been gone for at least one week. ?? Take medicine as prescribed to relieve your symptoms. Unless another medicine was prescribed for symptoms of nausea, vomiting, and dizziness, you may use zspo-obt-xmblhlm motion sickness pills.??Askyour pharmacist for suggestions. Follow-up care Follow up with your healthcare provider or as directed. If you are referred to a specialist or for testing, make the appointment promptly. When to seek medical advice Call your healthcare provider if any of the following occur: ?? Fever of 100.4??F (38??C) or higher, or as directed by your healthcare provider ?? Vertigo worsens or is not controlled by??prescribed??medicine? Repeated vomiting not relieved by prescribed??medicine? Severe headache ?? Confusion ?? Weakness of an arm or leg or one side of the face ?? Difficulty with speech or vision ?? Loss of consciousness? Seizure ?? [id number] [employer] [place] [address]. All rights reserved. This information is not intended as a substitute for professional medical care. Always follow your healthcare professional's instructions. H SHRINKING MACHINE OPERATOR HELPER documented in this encounter Medications at Time [...] 06/19/2017 PO) documented as of this encounter ED Notes Amanda Mcpherson, RENA - 08/02/2016 10:38 AM CST Ambulated patient in [place], stated she felt week but better. Patient did vomit. H SHRINKING MACHINE OPERATOR HELPER Ann Marie Cano RN - 08/02/2016 8:14 AM CST Pt has been vomiting in the morning X 4 days. Pt also c/o feeling lightheaded. Pt was seen in on Tuesday and given zofran without relief. Pt report spinning and headache. Pt denies possibility of . Pt took zofran at home without relief. H SHRINKING MACHINE OPERATOR HELPER Leoncio Bashir MD - 08/02/2016 7:58 AM CST History Chief Complaint: Headache, Dizziness, Nausea, and Vomiting HPI Akil Ramirez is a 26 year old female who presents to the emergency department for evaluation of headache, nausea, vomiting, and dizziness. The patient states that she has a sore throat as of late and was seen on 07/29 in urgent care, where she had a negative strep test, found to have a sinus infection, and was prescribed amoxicillin. Following this visit, the patient states that she developed a headache with associated dizziness and nausea with vomiting the following day, which has been present since onset. The patient notes that her dizziness is exacerbated by movements of her head. She was againseen at urgent care, where she was found to have vertigo, had an Junior maneuver, was told to stop taking the amoxicillin, and prescribed Zofran ODT, which she has been taking with little relief of her nausea. When her dizziness, headache, and nausea continued this morning, she decided to seek evaluation here in the emergency department. She denies any recent injury to her head or neck or chiropracticmanipulation of her head or neck. Allergies: NKDA Medications: levonorgestrel-ethinyl estradiol Zofran Past Medical History: The patient denies any significant past medical history. Past Surgical History: diabetes mellitus Migraines Family / Social History: No past pertinent family history. Social History: Presents with her . Negative for tobacco use. Negative for alcohol use. Marital Status: Review of Systems HENT: Positive for sore throat. Gastrointestinal: Positive for nausea and vomiting. Neurological: Positive for dizziness and headaches. All other systems reviewed and are negative. Physical Exam Patient Vitals for the past 24 hrs: BP Temp Temp src Pulse Resp SpO2 Height Weight 08/02/16 0816 122/73 98.7 ??F (37.1 ??C) Oral 77 18 100 % 1.651 m (5' 5) 63.5 kg (140 lb) Physical Exam General: Patient is alert and interactive when I enter the room. She appears in moderate distress. Head: The scalp, face, and head appear normal Eyes: No photophobia. Conjunctivae and sclerae are normal ENT: External acoustic canals are normal The oropharynx is normal without erythema. Uvula is in the midline Neck: Normal range of motion CV: Regular rate. S1/S2. No murmurs. Resp: Lungs are clear without wheezes or rales. No distress GI: Abdomen is soft, no rigidity, guarding, or rebound No distension. No tenderness to palpation in any quadrant. MS: Normal tone. Joints grossly normal without effusions. No asymmetric leg swelling, calf or thigh tenderness. Normal motor assessment of all extremities. There is no cervical paraspinal tenderness. Skin: No rash or lesions noted. Normal capillary refill noted Neuro: Speech is normal and fluent. Face is symmetric without droop. Moving all extremities well. CN's II-XII intact. 5/5 UE and LE strength. PERRLA. EOMI without nystagmus. Reflexes symmetric. Sensation intact to light touch. Negative pronator drift. Finger to nose intact from a pronator drift position. Psych: Awake. Alert. Normal affect. Appropriate interactions. Lymph: No anterior cervical lymphadenopathy noted Emergency Department Course Interventions: 0920 Meclizine 25 mg PO 1111 Zofran-ODT 8mg disintegrating tablet PO Emergency Department Course: Nursing notes and vitals reviewed. I performed an exam of the patient as documented above. 0820 We attempted to contact physical therapy here in the ED, though they not in clinic today. Patient will be given outpatient referral to PT. 1004 I rechecked the patient regarding her current symptoms. Junior maneuver done with head [id number] degrees left. Repeated x 1. 1041 The patient was ambulated here in the emergency department. She states that her dizziness is essentially resolved, but she had an episode of vomiting. 1121 I reevaluated the patient and provided an update in regards to her ED course. She is feeling improved at this time and is able to ambulate without dizziness or vomiting. Findings and plan explained to the Patient. Patient discharged home with instructions regarding supportive care, medications, and reasons to return. The importance of close follow-up was reviewed. The patient was prescribed Meclizine. Impression & Plan Medical Decision Making: Akil Ramirez is a 26 year old female who presents for evaluation of vertigo. The differential diagnosis of vertigo is broad and includes common etiologies such as menieres disease, labyrinthitis, benign positional vertigo, otitis media, etc. More serious etiologies considered include central etiologies such as tumor, intracerebral bleed, dissection, ischemic cerebral vascular accident. The history, physical exam including detailed neurologic exam, and workup in the emergency room suggests a benign cause of vertigo today. Patient feels improved after interventions noted above. Further outpatient management is indicated with vertigo medications. No indication for advanced imaging at this point (CT/MRI) as there are no definite signs of a central and concerning etiology for the vertigo. Vertigo precautions given for home. See vestibular PT today or tomorrow as still mild symptoms afterEpley maneuver here in ED. Diagnosis: ICD-10-CM 1. Vertigo R42 Disposition: discharged to home Discharge Medications: New Prescriptions MECLIZINE (ANTIVERT) 25 MG TABLET Take 1 tablet (25 mg) by mouth every 6 hours as needed for dizziness IYvette am serving as a scribe on 08/02/2016 at 8:43 AM to personally document services performed by Leoncio Bashir MD based on my observations and the provider's statements to me. Yvette Reid 08/02/2016 [facility] EMERGENCY [facility]PART[facility] Leoncio Bashir MD 08/02/16 1223 H SHRINKING MACHINE OPERATOR HELPER documented in this encounter Plan of Treatment Scheduled Referrals Name Type Priority Associated Diagnoses Order S [facility] PHYSICAL THERAPY REFERRAL Referral Routine Vertigo Or dered: 08/02/2016 documented as of this encounter Visit Diagnoses Diagnosis Vertigo Dizziness and giddiness documented in this encounter Administered Medications Inactive Administered Medications - up to 3 most recent administrations Medication Order MAR Action Action Date Dose Rate Site meclizine (ANTIVERT) tablet 25 mg Given 08/02/2016 9:20 AM CLOTH SHRINKING MACHINE OPERATOR HELPER 25 mg 25 mg, Oral, ONCE, On Tue08/02/16 at 0857, For 1 dose ondansetron (ZOFRAN-ODT) ODT tab 8 mg Given 08/02/2016 11:11 AM CL[facility] SHRINKING MACHINE OPERATOR HELPER 8 mg 8 mg, Oral, ONCE, On Tue08/02/16 at 1037, For 1 dose documented in this encounter Active and Recently Administered Medications Times are shown in CLOTH SHRINKING MACHINE OPERATOR HELPER. Scheduled Medication Order 07/31/2016 08/01/2016 08/02/2016 meclizine (ANTIVERT) tablet 25 mg (COMPLETED) 0920 (Given - Provider: Amanda Mcpherson RN) 25 mg, Oral, ONCE, 08/02/16 at 0857, For 1 dose ondansetron (ZOFRAN-ODT) ODT tab 8 mg (COMPLETED) 1111 (Given - Provider: Amanda Mcpherson RN) 8 mg, Oral, ONCE, 08/02/16 at 1037, For 1 dose documented in this encounter Care Teams Production Utility Worker Relationship Specialty Start Date End Date Clinic, [facility] PCP - General 08/02/16 04/30/19 [place] [address] documented as of this encounter
--- OUTSIDE RECORDS SUMMARY | 2022-02-12 08:31 | XMS_ITS | Encounter Summary ---
:1990 Author Organization [place] Address [facility] [place] [address] Care Team Providers Name Role Phone [facility] Primary Care Provider [phone] Reason for Visit Rehab Therapy Integrated Services - Closed Specialty Diagnoses / Procedures Referred By Contact Refer red To Contact Diagnoses Vertigo [facility] [address] [place], [place] [address] Phone: Fax: Referral ID Status Reason Start Date Expiration Date Visits V isits Requested Authorized [facility] - Closed 08/02/2016 06/12/2017 365 365 PT/OT/PASSENGER REPRESENTATIVE ([id number]) Encounter Details Date Type Department Care Team Description 08/02/[address] [facility] Eulogio Bashir MD [facility] [address] [place], [place] [address] Rehabilitation Services Marlena Thacker, PT [facility] [address] [place] [address] Social History Tobacco Use Types [...] encounter Progress Notes Marlena Thacker, PT - 08/02/2016 11:59 PM CST 08/02/16 1400 Quick Adds Quick Adds Vestibular Eval Type of Visit Initial OP PT Evaluation General Information Start of Care Date 08/02/16 Referring Physician Leoncio Bashir MD Orders Evaluate and Treat as Indicated Order Date 08/02/16 Medical Diagnosis Vertigo Onset of illness/injury or Date of Surgery 07/30/16 Precautions/Limitations no known precautions/limitations Surgical/Medical history reviewed Yes Pertinent history of current problem (include personal factors and/or comorbidities that impact the POC) Presented to ED this morning with sxs of SYKES, nausea, vomiting and dizziness. She was seen in urgent care for sore throat 07/29/16 and found to have a sinus infection, and prescribed amoxicillin. She developed a SYKES and associated dizziness and nausea with vomiting the following day which has continued for the past 3 days. She was seen again in urgent care Tuesday and stopped taking Amoxicillin, prescribed Zofran with she has been taking without relief of nausea. Her dizziness, SYKES and nausea continued this morning and had another f/u in ED. Junior maneuver performed x2 with pt reporting vomiting with improved sxs of dizziness following and prescribed Meclizine. Pt currently reports feeling lightheaded and mild SYKES above eyes in upright sitting, feeling the best she has in the past 3 days, she hasnot been able to tolerate being upright. Reports feeling comfortable when laying and closing her eyes. Describes sxs of dizziness as intermittent, short duration vertigo with positional changes, particularly when bending over, reaching up, and turning in bed. Sxs accompanied by a strong sense of instability, holding dash of house and using spouse for support. Motion sensitive when riding in car, hasnot been driving. She denies injury to head or neck. No hx of Migraines, or concussions. She last took Meclizine this morning when received from the ED. 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 No Per patient - Fall with injury in past year? No Timed Up and Go score (seconds) n/t (see 4 item DGI) Is patient a fall risk? Yes System Outcome Measures Outcome Measures BPPV Dizziness Handicap Inventory (score out of 100) A decrease in score by 17.18 or greater indicates a clinically significant change in symptoms. 88 (severe perception of handicap) At end of session, is nystagmus present that is mill representative of a BPPV pattern with positional testing? No Pain Patient currently in pain No Cognitive Status Examination Orientation orientation to person, place and time Level of Consciousness alert Follows Commands and Answers Questions 100% of the time Personal Safety and Judgment intact Memory intact Observation Observation Accompanied by spouse for session, arrives holding his arm walking. Holds emisis bag in anticipation of vomiting throughout session, reports no nausea throughout assessment Posture Posture Normal Bed Mobility Bed Mobility Comments independent with sxs of vertigo Transfer Skills Transfer Comments independent Gait Gait Comments over short distances indoors walks cautiously with mild inc sway, disrupted gait with cervical movements without LOB Gait Special Tests Gait Special Tests 25 FOOT TIMED WALK;DYNAMIC GAIT INDEX Gait Special Tests 25 Foot Timed Walk Seconds 7.52 Gait Special Tests Dynamic Gait Index Comments 4 item DGI: 02/22 (4 item DGI (</= 02/22 = inc risk for falls) ) Balance Special Tests Balance Special Tests Modified CTSIB Conditions Balance Special Tests Modified CTSIB Conditions Condition 1, seconds 30 Seconds Condition 2, seconds 30 Seconds Condition 4, seconds 30 Seconds Condition 5, seconds 1 Seconds Modified CTSIB Comments inc sway on all conditions, significantly inc sway with inc vestibular utilization on condition 5, opens eyes to prevent LOB Sensory Examination Sensory Perception Comments denies n/t Cervicogenic Screen Neck ROM WNL Oculomotor Exam Smooth Pursuit Normal Saccades Normal Rapid Head Thrust Normal Infrared Goggle Exam or Frenzel Lense Exam Vestibular Suppressant in Last 24 Hours? Yes Exam completed with Infrared Goggles Spontaneous Nystagmus Negative Gaze Evoked Nystagmus Negative Head Shake Horizontal Nystagmus Negative Rico-Hallpike (right) Negative Rico-Hallpike (Left) Other Long Bottom-Hallpike (left) comments L downward diagonal short duration nystagmus accompanied by brief mild vertigo Planned Therapy Interventions Planned Therapy Interventions neuromuscular re-education;other (see comments) Planned Therapy Interventions Comment CRM Clinical Impression Criteria for Skilled Therapeutic Interventions Met yes, treatment indicated PT Diagnosis L BPPV Influenced by the following impairments (+) s/s of BPPV with positional testing, impaired postural stability with inc vestibular utilization, impaired gait stability Functional limitations due to impairments impaired functional bed mobility, ambulation, participation in work Clinical Presentation Stable/Uncomplicated Clinical Presentation Rationale vertigo and nystagmus observed consistant with BPPV Clinical Decision Making (Complexity) Low complexity Therapy Frequency 1 time/week Predicted Duration of Therapy Intervention (days/wks) 3 weeks Risk & Benefits of therapy have been explained Yes Patient, Family & other staff in agreement with plan of care Yes Clinical Impression Comments Results of assessment consistent with BPPV. Pt would benefit from continued assessment of vestibular system without vestibular suppressant. Education Assessment Barriers to Learning No barriers GOALS PT Eval Goals 1;2;3 Goal 1 Goal Identifier DHI (baseline 88/100) Goal Description Pt to score 0/100 per DHI with resolved sxs of dizziness >/= 24-28 hours. Target Date 08/24/16 Goal 2 Goal Identifier BPPV Goal Description Pt will demonstrate (-) s/s of BPPV throughout positional testing of all canals. Target Date 08/24/16 Goal 3 Goal Identifier 4 item DGI (baseline: 02/22 = inc risk for falls) Goal Description Patient will have improved score on 4 item DGI to 05/24 indicating reduced fall risk for greater safety with community ambulation. Target Date 08/24/16 Total Evaluation Time Total Evaluation Time (Minutes) 50 ARE ADMINISTRATOR documented in this encounter Plan of Treatment Scheduled Referrals Name Type Priority Associated Diagnoses Order S [facility] PHYSICAL THERAPY REFERRAL Referral Routine Vertigo Or dered: 08/02/2016 documented as of this encounter Visit Diagnoses Not on filedocumented in this encounter Care Teams Internet Marketing Intern Relationship Specialty Start Date End Date Clinic, [facility] PCP - General 08/02/16 04/30/19 [place] [address] documented as of this encounter
--- OUTSIDE RECORDS SUMMARY | 2022-02-12 08:31 | XMS_ITS | Clinical Summary ---
:1990 Author Organization [facility] Address [address] [place] [address] Care Team Providers Name Role Phone Unavailable Primary Care Provider Unavailable Source Comments Patient records contain information from all sites at [facility]. For routine questions regarding patient records, call [phone] during business hours, M-F 8:00 AM - 5:00 PM Central Time. Record requests for emergency care only can be directed to [phone] at any time.[facility] Active Problems Problem Noted Date Proteinuria 03/12/2020 Social History Tobacco Use Types Packs/Day Years Used Date Smoking Tobacco: Never Assessed Sex Assigned at Date Recorded Not on file Plan of Treatment Health Maintenance Due Date Last Done Comments Cervical Cancer Screening 1990 HIV Screening 1990 Hepatitis B Vaccines (1 of 1990 3 - 3-dose series) Hepatitis C Screening 1990 COVID-19 Vaccine (3 - 01/15/2021 08/15/2020, 07/18/2020 Booster for Moderna series) Depression Screening 06/13/2021 (Annual PHQ-2) Influenza Vaccine (#1) 2022 04/17/2021, 04/16/2020, 04/13/2019, Additional history exists DTaP,Tdap,and Td Vaccines 09/19/2029 09/20/2019 (2 - Td or Tdap) Pneumococcal vaccine (0-64 Aged Out No lo nger eligible years) based on patient 's age to complete this topic Insurance Payer Benefit Plan / Subscriber ID Effective Phone Address T ype Group Dates PREFERREDONE PREFERREDONE [id number] 2019-Pre [phone] PPO ADMINISTRATIVE ADMINISTRATIVE sent [phone] SERVICES SERVICES [place]EN [place] [phone]
--- OUTSIDE RECORDS SUMMARY | 2022-02-12 08:31 | XMS_ITS | Encounter Summary ---
:1990 Author Organization [place] Address [facility] [place] [address] Care Team Providers Name Role Phone Soraya Castrejon PA-C Unavailable [facility] Clinics- Encounter Details Date Type Department Care Team Description 05/01/2019 Travel Social History Tobacco Use Types Packs/Day Years Used Date Never Smoker Smokeless Tobacco: Never Used Alcohol Use Standard Drinks/Week Comments No 0 (1 standard drink = 0.6 oz pure alcoho l) Sex Assigned at Date Recorded Not on file documented as of this encounter Plan of Treatment Not on filedocumented as of this encounter Visit Diagnoses Not on filedocumented in this encounter Care Teams Production Line Mechanic Relationship Specialty Start Date End Date [facility] PCP - General 05/01/19 [facility]- [address] [place] [address] Soraya Castrejon PA-C Assigned PCP 04/30/18 04/25/21 [address] [place] [address] documented as of this encounter
--- OUTSIDE RECORDS SUMMARY | 2022-02-12 08:31 | XMS_ITS | Encounter Summary ---
:1990 Author Organization [facility] Address [address] [place] [address] Care Team Providers Name Role Phone Unavailable Primary Care Provider Unavailable Reason for Visit Reason Onset Date Comments Panel Management 11/27/2014 Encounter Details Date Type Department Care Team Description 11/27/2014 Telephone [facility] Suri Salgadoah Hi, Panel Management [address] [address] [place] [address] [phone] Social History Tobacco Use Types Packs/Day Years Used Date Never Smoker Smokeless Tobacco: Never Used Alcohol Use Standard Drinks/Week Comments Yes 0 (1 standard drink = 0.6 oz pure alcoho l) Sex Assigned at Date Recorded Not on file documented as of this encounter Miscellaneous Notes Telephone Encounter - Mu Uribe CMA - 11/27/2014 10:52 AM CDT Needs of attention regarding: -Cervical Cancer Screening -Wellness (Physical) Visit Health Maintenance Topics with due status: Overdue Topic Date Due WELLNESS VISIT Q1 YR (NO INBASKET) 1991 LIPID MONITORING Q5 YEARS (NO INBASKET) 1992 TETANUS IMMUNIZATION (SYSTEM ASSIGNED) 2009 PAP SCREENING Q3 YR (SYSTEM ASSIGNED) 2012 Communication: See Letter documented in this encounter Plan of Treatment Not on filedocumented as of this encounter Visit Diagnoses Not on filedocumented in this encounter
--- OUTSIDE RECORDS SUMMARY | 2022-02-12 08:31 | XMS_ITS | Encounter Summary ---
:1990 Author Organization [facility] Address [address] [place] [address] Care Team Providers Name Role Phone Unavailable Primary Care Provider Unavailable Reason for Visit Reason Comments Otalgia Pharyngitis Encounter Details Date Type Department Care Team Description 10/14/2014 Office Visit [facility] Lily Salgado Strepto coccal pharyngitis (Primary Dx); [facility] RAYSHAWN Do FIELD SECRETARY Sore throat [address] [place] [phone] Social History Tobacco Use Types Packs/Day Years Used Date Never Smoker Smokeless Tobacco: Never Used Alcohol Use Standard Drinks/Week Comments Yes 0 (1 standard drink = 0.6 oz pure alcoho l) Sex Assigned at Date Recorded Not on file documented as of this encounter Last Filed Vital Signs Vital Sign Reading Time Taken Comments Blood Pressure 128/62 10/14/2014 4:42 PM CDT Pulse 108 10/14/2014 4:42 PM CDT Temperature 39.1 ??C (102.3 ??F) 10/14/2014 4:42 PM CDT Respiratory Rate - - Oxygen Saturation 99% 10/14/2014 4:42 PM CDT Inhaled Oxygen Concentration - - Weight 58.1 kg (128 lb) 10/14/2014 4:42 PM CDT Height 166.4 cm (5' 5.5) 10/14/2014 4:42 PM CDT Body Mass Index 20.98 10/14/2014 4:42 PM CDT documented in this encounter Patient Instructions Patient Subha Lily Brumberg, DENTAL HYGIENIST FIELD SECRETARY - 10/14/2014 5:14 PM CDT Images from the original note were not included. Pharyngitis Strep (Strep Throat) Adult Information About Your Condition: Description Sore throat is a common symptom that ranges in severity from just a sense of scratchiness to severe pain. Pharyngitis is the medical term for sore throat. Strep throat is an inflamed (red and swollen) throat caused by infection with a kind of bacteria called group A Streptococci. With treatment, the fever and sore throat pain are usually gone within 24 hours. After taking antibiotics for 24 hours you are no longer contagious. It is important to treat strep throat to prevent some rare but serious complications such as rheumatic fever (a disease that affects the heart) or glomerulonephritis (a disease that affects the kidneys). Symptoms The symptoms of a strep infection may include one or more of the following: sore, red throat painful swallowing fever chills headaches muscle aches and pains tired feeling swollen, tender lymph nodes (glands) in the neck loss of appetite Causes Strep throat is caused by infection with bacteria called Group A Streptococci. Strep infections are very contagious. They are usually passed directly from person to person. Strep throat is most common in school-age children, who then often pass it to the rest of the family. It most often occurs from April through September, but it can happen any time of year. What You Should Do At Home (Follow-up Care) It is important to get plenty of rest when you are not feeling well so that your body may focus its energy on getting you healthy. If you smoke, stop. If someone else in your household smokes ask them to smoke outside. If you were given a prescription for antibiotics, be sure to get it filled right away. Follow the directions exactly. Take the medicine until it is completely gone. Do not stop taking it just because you feel better. Acetaminophen (Tylenol??) or cjaj-qni-hkjvtzl anti-inflammatory medicine such as ibuprofen (Motrin??, Advil??) or naproxen (Aleve??, Naprosyn??) may help decrease fever and pain. You should not take ibuprofen or naproxen if you have a history of bleeding in your stomach. As long as your healthcare provider has not told you differently, drink plenty of liquids. An average adult should drink at least 6 to 10 eight-ounce glasses of liquids that do not contain alcohol (including beer or wine), such as water, juice, or weak tea each day. One way to tell if you are drinkingenough liquid is to look at the color of your urine (pee). It should be very light yellow. If eating hurts your throat, don't force yourself to eat solid food. When you are able to eat more foods, choose healthy food to give you strength and to help fight the infection. If the air in your home is dry, a cool-mist humidifier can moisten the air and help make breathing easier. Be sure to clean your humidifier often so that bacteria and mold can???t grow. You can also try running hot water in the shower or bathtub to steam up the bathroom. Sit in there for 10 to 15 minutes if you are coughing hard or having trouble breathing. Gargle with salt water. Stir 1/2 teaspoon salt in an 8-ounce glass of warm water to make your own salt water gargle. Suck on lozenges or hard candy. Don't talk a lot. Rest your voice. Avoid close contact with other people until you have been taking the antibiotic for 24 to 48 hours so they will not be exposed to the strep bacteria. Cover your nose and mouth with a tissue when coughing or sneezing and then throw it away in the nearest waste receptacle. Wash your hands often with warm water and soap for at least 15 seconds before you touch food, dishes, glasses, silverware, or cloth napkins. You can also carry an alcohol-based hand railroad car cleaner with you toclean your hands when soap and water aren???t available. Wash your hands after you cough. Please keep all medicines out of the reach of children. What You Can Do To Stay Healthy Be careful not to let your nose or mouth touch public telephones or drinking fountains. Use paper cups and paper towels in bathrooms instead of shared drinking cups and hand towels. Do not share food and eating utensils with others. Stay away from people known to be sick. Care Alerts Call 911 if: You have trouble breathing or swallowing. Your feel like your throat or tongue are swelling. Call Your Healthcare Provider Right Away Or Return To The Emergency Department If: You are coughing up yellow or greenish phlegm (mucus.) You have a severe headache that does not get better with acetaminophen or ibuprofen. You start to have a very stiff neck and have pain when you bend your head forward. You have a fever higher than 101.5?? F (38.6?? C) orally that does not go down after taking acetaminophen or ibuprofen. You have any symptoms that worry you documented in this encounter Progress Notes Lily Emanuel APRN CNP - 10/14/2014 1:08 PM CDT SUBJECTIVE: Akil Gibbons is a 24 year old female who presents to clinic today for the following health issues: Acute Illness Acute illness concerns?- earache, sore throat Onset: x3 days ?? Fever: YES- curr -102.3 ?? Chills/Sweats: YES- chills ?? Headache (location?): YES- pressure ?? Sinus Pressure:no ?? Conjunctivitis: no ?? Ear Pain: YES- pressure ?? Rhinorrhea: YES- clear ?? Congestion: no ?? Sore Throat: YES ?? Cough: no ?? Wheeze: no ?? Decreased Appetite: YES ?? Nausea: YES- little ?? Vomiting: no ?? Diarrhea: no ?? Dysuria/Freq.: no ?? Fatigue/Achiness: YES- both ?? Sick/Strep Exposure: YES- kids in class have strep Therapies Tried and outcome: dayquil, ibuprofen - no relief. Problem list and histories reviewed & adjusted, [...] Outpatient Prescriptions Medication Sig Dispense Refill ??? amoxicillin (AMOXIL) 875 MG tablet Take 1 tablet (875 mg) by mouth 2 times daily 20 tablet 0 ??? levonorgestrel-ethinyl estradiol (AVIANE,ALESSE,LESSINA) 0.1-20 MG-MCG per tablet Take 1 tablet by mouth daily 3 Package 3 No Known Allergies No lab results found. BP Readings from Last 3 Encounters: 10/14/14 128/62 04/01/14 126/64 Wt Readings from Last 3 Encounters: 10/14/14 128 lb (58.06 kg) 04/01/14 137 lb (62.143 kg) Labs reviewed in [facility] Problem list, Medication list, Allergies, and Medical/Social/Surgical histories reviewed in [facility] andupdated as appropriate. ROS: Constitutional, HEENT, cardiovascular, pulmonary, gi and gu systems are negative, except as otherwise noted. OBJECTIVE: BP 128/62 Pulse 108 Temp(Src) 102.3 ??F (39.1 ??C) (Oral) Ht 5' 5.5 (1.664 m) Wt 128 lb (58.06 kg) BMI 20.97 kg/m2 SpO2 99% ? No Body mass index is 20.97 kg/(m^2). GENERAL: healthy, alert and no distress HENT: ear canals and TM's normal, nose and mouth without ulcers or lesions NECK: no adenopathy, no asymmetry, masses, or scars and thyroid normal to palpation RESP: lungs clear to auscultation - no rales, rhonchi or wheezes CV: regular rate and rhythm, normal S1 S2, no S3 or S4, no murmur, click or rub, no peripheral edemaand peripheral pulses strong PSYCH: mentation appears normal, affect normal/bright LYMPH: no cervical, supraclavicular, axillary, or inguinal adenopathy Diagnostic Test Results: Results for orders placed in visit on 10/14/14 RAPID STREP SCREEN Result Value Ref Range Specimen Description Throat Rapid Strep A Screen (*) Value: POSITIVE: Group A Streptococcal antigen detected by immunoassay. Micro Report Status FINAL 10/14/2014 ASSESSMENT/PLAN: Akil was seen today for otalgia and pharyngitis. Diagnoses and associated orders for this visit: Streptococcal pharyngitis - amoxicillin (AMOXIL) 875 MG tablet; Take 1 tablet (875 mg) by mouth 2 times daily Sore throat - Rapid strep screen See Patient Instructions Amoxicillin, symptomatic treatment. Change out toothbrush 4 hours being on the medication. Return to clinic if no improvement or symptoms worsen. Patient verbalized understanding & agreed with plan of care. Lily Emanuel APRN, [facility] documented in this encounter Nursing Notes Mu Uribe CMA - 10/14/2014 4:43 PM CDT Chief Complaint Patient presents with ??? Otalgia ??? Pharyngitis Initial BP 128/62 Pulse 108 Temp(Src) 102.3 ??F (39.1 ??C) (Oral) Ht 5' 5.5 (1.664 m) Wt 128 lb (58.06 kg) BMI 20.97 kg/m2 SpO2 99% ? No Estimated body mass index is 20.97 kg/(m^2) as calculated from the following: Height as of this encounter: 5' 5.5 (1.664 m). Weight as of this encounter: 128 lb (58.06 kg). BP completed using cuff size: regular Csaba Jojo COLIN documented in this encounter Plan of Treatment Not on filedocumented as of this encounter Procedures Procedure Name Priority Date/Time Associated Diagnosis Comme nts RAPID STREP SCREEN Routine 10/14/2014 5:10 PM Sore throat Res ults for this THROAT SWAB CDT procedure are i n the results section. documented in this encounter Results (ABNORMAL) Rapid strep screen (10/14/2014 5:10 PM CDT) Component Value Ref Test Analysis Performed At [facility] Range Method Time Signature Specimen Throat [facility] Description [facility] [place] [place] Rapid Strep A POSITIVE: Group [facility] Screen A Streptococcal CLINICS antigen detected [facility] [place] [place] by immunoassay. (A) Micro Report FINAL 10/14/2014 [facility] Status [facility] [place] Specimen Anatomical Collection Method Collection Time Receive d Time (Source) Location / / Volume Laterality Specimen from 10/14/2014 5:10 PM 10/15/19 15 5:12 throat CDT PM CDT (specimen) Lily Salgado APRN, CNP LAB - MICRO GENERAL ORDERABL ES Performing Organization Address City/State/ZIP Code Phon e Number [facility] [address] [place] [phone] documented in this encounter Visit Diagnoses Diagnosis Streptococcal pharyngitis - Primary Streptococcal sore throat Sore throat Acute pharyngitis documented in this encounter
--- OUTSIDE RECORDS SUMMARY | 2022-02-12 08:31 | XMS_ITS | Encounter Summary ---
:1990 Author Organization [facility] Address [address] [place] [address] Care Team Providers Name Role Phone Unavailable Primary Care Provider Unavailable Reason for Visit Appointment Request (Routine) - Closed Specialty Diagnoses / Procedures Referred By Contact Refer red To Contact Nephrology and Radha, Hypertension Karen Do M.D. [address] [place] [address] Referral ID Status Reason Start Date Expiration Date Visits Requ ested Visits Authorized [id number] Closed 02/28/2020 02/27/2021 1 1 Encounter Details Date Type Department Care Team Description 03/12/2020 External Outreach Division of Lance Diggs (Primary Nephrology and Waldemar Dawson Jr., Dx) Hypertension in [place], [place] [address] [facility] [address] [place] [phone] Social History Tobacco Use Types Packs/Day Years Used Date Smoking Tobacco: Never Assessed Sex Assigned at Date Recorded Not on file documented as of this encounter Consult Notes Waldemar Diggs Jr., D.O. - 03/12/2020 10:00 AM CDT Please see scanned in note under document viewer tab for the [facility] outreach visit from this date. documented in this encounter Plan of Treatment Not on filedocumented as of this encounter Visit Diagnoses Diagnosis Proteinuria - Primary documented in this encounter
--- OUTSIDE RECORDS SUMMARY | 2022-02-12 08:32 | XMS_ITS ---
:1990 Author Care Team Providers Name Role Phone DR. EDDIE STANTON Referring Provider [phone] EDDIE STANTON DDS Referring Provider [phone] [facility] Physical Therapist [phone] Allergies Code Code System Name Reaction Severity Status Onset NKDA ? Medications Name Status Start Date Stop Date ? ? amoxicillin 875 mg tablet Completed ? 2021 TAKE 1 TABLET BY MOUTH TWICE A DAY FOR 10 DAYS mupirocin 2 % topical ointment Completed ? 0 09/21/2021 APPLY THIN LAYER IN NOSTRILS 3 TIMES PER DAY FOR 10 DAYS febaglui-zbblaulxw-odigmrfoh 3.5 mg-10,000 unit/mL-1 % ear d rops,susp Completed ? 12/30/[address] 3 DROPS INTO THE RIGHT EAR THREE TIMES DAILY FOR 10 DAYS nifedipine ER 30 mg tablet,extended release Completed ? 12/30/2020 TAKE 1 TABLET BY MOUTH EVERY DAY ondansetron 4 mg disintegrating tablet Completed ? 05/04/2017 Orsythia 0.1 mg-20 mcg tablet Completed ? valacyclovir 1 gram tablet Active ? Not a vailable TAKE 2 TABLETS (2000MG) BY MOUTH TWICE DAILY FOR 1 DAY AT ONSET OF COLD SORE Problems Name Status Onset Date Source ? 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 Myofascial Pain Active 12/01/2016 ? Arthralgia of Temporomandibular Joint Unknown 12/01/2016 ? 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 Procedures Date Name Performed by ? ? [facility] Teeth Extraction Information not available 12/01/2016 XR, Orthopantogram [address] [place] [address] (Work [address]) Results Lab Results Date Name Specimen Result Interpretation Description Value Range Status Address ? ? XR, Orthopantogram ? No observation ? ? ? Mena: [id number]. [facility] [address], Rom[place] Past Encounters 12/29/2021 Myofascial Pain; Limited Opening of Julio ible; Articular Disc Disorder of Temporomandibular Joint Adamaris Cruz, DDS: [address], [address], [place] [address], Ph. 11/23/2021 Myofascial Pain; Limited Opening of Julio ible; Articular Disc Disorder of Temporomandibular Joint Adamaris Cruz, DDS: [address], [address], [place] [address], Ph. 09/21/2021 Myofascial Pain; Limited Opening of Julio ible; Articular Disc Disorder of Temporomandibular Joint; Arthralgia of Temporomandibular Joint Adamaris Cruz, DDS: [address], [address], [place] [address], Ph. 12/30/2020 Myofascial Pain; Articular Disc Disorder of Temporomandibular Joint; Limited Opening of Mandible Adamaris Cruz, DDS: [address], [address], [place] [address], Ph. Social History Tobacco Smoking Status Never Smoker Vaccine List Vaccine Type COVID-19 (SARS-COV-2) vaccine, unspecifi ed 07/14/2020 influenza, injectable, quadrivalent 03/13/2020 influenza, seasonal, injectable 03/20/2016 Plan of Care Reminders Provider Appointments None recorded. ? ? Lab None recorded. ? ? Referral None recorded. ? ? Procedures None recorded. ? ? Surgeries None recorded. ? ? Imaging None recorded. ? ? Vitals 12/29/2021 02:30PM FOLLOW UP 30 Blood Pressure 104/60 mm[Hg] 11/23/2021 02:00PM SPLINT INSERT Blood Pressure 103/61 mm[Hg] 09/21/2021 02:00PM FOLLOW UP 30 Blood Pressure 108/67 mm[Hg] 12/30/2020 08:30AM RE-EVALUATION Blood Pressure 104/64 mm[Hg] 05/04/2017 12:30PM FOLLOW UP 30 Height Weight BMI Blood Pressure 5 ft 5 in 135 lbs 22.5 kg/m2 103/75 mm[Hg] 01/04/2017 08:30AM FOLLOW UP 30 Height Weight BMI Blood Pressure 5 ft 5 in 135 lbs 22.5 kg/m2 (1) 104/92 mm[H g] (2) 120/76 mm[Hg ] 12/21/2016 04:30PM SPLINT INSERT Height Weight BMI Blood Pressure 5 ft 5 in 135 lbs 22.5 kg/m2 100/66 mm[Hg] 12/01/2016 08:30AM NEW PATIENT 60 Height Weight BMI Blood Pressure 5 ft 5 in 135 lbs 22.5 kg/m2 119/78 mm[Hg]
--- OUTSIDE RECORDS SUMMARY | 2022-02-12 08:32 | XMS_ITS | Encounter Summary ---
:1990 Author Care Team Providers Name Role Phone Dr. Darcy Bowles Referring Provider [phone] Darcy Bowles DDS Referring Provider [phone] Karrie Cm [place] Physical Therapist [phone] Reason for Visit Limited opening of mandible; Myofascial pain; Articular disc disorder of temporomandibular joint Assessment and Plan Assessment Note Patient was seen today for follow-up an d insertion of a maxillary stabilization intraoral appliance. Diagnosis and contributing factors were reviewed. Questions were answered. Self-management and home exercise techniques were reviewed. Today the intraoral appliance was fit to patient comfort. Specifically, adjustments were made to balance appliance occlusion. Instructions on proper use and care were discussed/reviewed both written and verbally. I suggested that the patient uses the appliance as a retraining tool to aid in relaxing their jaw muscles - put it in 20-30 minutes before bed time, keeping their jaw in a relaxed balanced po sition, simultaneously applying a heat c ompress on the jaw. Potential side effects were reviewed. The patient was advised to discontinue oral appliance use should they experience untoward side effects o r be unable to return for follow-up care . The patient was advised to return in 3-4 weeks to reassess their progress and continue their treatment plan as previously outlined. In addition to oral applianc e insertion today we review home self-ca re strategies as previously discussed. We discussed additional treatment options including rehabilitative treatment with physical therapy. History today was obtained from the osorio ent. The patient has 3 diagnoses they would like to address. Their symptoms are unchanged. This case is moderate complexity because of multiple diagnoses with chr onic symptoms. Risk of complications inc luding disease progression were discussed. Today time spent may have included a review of past records, history taking, review of diagnoses, contributing factors, treatment plan, diagnostic testing, pro gnosis, expectations, risks and complications of treatment/no treatment, discussions with other providers and completing documentation was 25 minutes. I've sugges josephine that the patient return for follow-u p care in 2-4 weeks. 1. Myofascial pain masticatory 2. Limited opening of mandible 3. Articular disc disorder of temporoma ndibular joint left closed lock Discussion Note: None recorded.Patient educational handouts: No information available. Plan of Care Reminders Provider Appointments Splint Insert 03/25/2022 9:30AM Adamaris Cruz DDS Lab None recorded. ? ? Referral None recorded. ? ? Procedures None recorded. ? ? Surgeries None recorded. ? ? Imaging None recorded. ? ? Medications Name Start Date ? ? valacyclovir 1 gram tablet ? TAKE 2 TABLETS (2000MG) BY MOUTH TWICE DAILY FOR 1 DA Y AT ONSET OF COLD SORE Medications Administered None recorded. Vitals Blood Pressure 103/61 mm[Hg] Results Lab Results None recorded. Allergies Code Code System Name Reaction Severity Onset NKDA ? ? ? Problems Name Status Onset Date Source ? 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 Myofascial Pain Active 12/01/2016 ? 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 Procedures Date Name Performed by ? ? [facility] Teeth Extraction Information not available Vaccine List Vaccine Type COVID-19 (SARS-COV-2) vaccine, unspecifi ed 07/14/2020 influenza, injectable, quadrivalent 03/13/2020 influenza, seasonal, injectable 03/20/2016 Social History Tobacco Smoking Status Never Smoker What type of diet are you following? REGULAR How many children do you have? 1 Are you currently employed? Y How did primary problem begin? Jaw pain Relationship Status Work related injury? N Marital Status Do you reside in or have you traveled to an area N where Ebola virus transmission is active? What was the date of your most recent tobacco 05/04/2017 screening? General stress level Medium What number best describes how, during the past 5 week, pain has interfered with your general activity? (0=does not interfere, 10=completely interferes) Do you use any illicit or recreational drugs? N What is your exercise level? Occasional What is your relationship status? What is your level of alcohol consumption? Occasional Education Post Graduate Auto related injury? N What number best describes your pain on average in 5 the past week? (0=no pain, 10=pain as bad as you can imagine) What number best describes how, during the past 5 week, pain has interfered with your enjoyment of life? (0=does not interfere, 10= completely interferes) What is your level of caffeine consumption? Moderate Currently N Do you feel stressed (tense, restless, nervous, or [id number] anxious, or unable to sleep at night)? 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 Past Encounters 11/23/2021 Myofascial Pain; Limited Opening of Julio ible; Articular Disc Disorder of Temporomandibular Joint Adamaris Cruz, DDS: [address] [facility], [address] [address], Ph. History of Present Illness ? Jaw pain Reported By: Patient HPI: Onset: started 4 year(s) ago . Location: right, bilateral, masseter, preauricular. Quality: dull, aching, sore. Severity: pain level 7/10. Duration and frequency const ant. Context: clenching, bruxism, chews hard/crunchy/chewy foods; . Aggravating/contribution factors: grinding teeth, clenching the teeth, chewing, chewy foods. Alleviating Factors: soft foods, splint therapy. Associated Symptoms: no jaw locking, no headaches, jaw clicking bila teral, jaw popping bilateral. Prior Tests: panorex. Prior Treatment: gregory gramajo, physical therapy Notes:
? Jaw joint noises Reported By: Patient HPI: Location: bilateral. Quality : popping/clicking. Severity: mild. Duration: episodic frequent. Context: no known trigger. Aggravating Factors: no exacerbating fac tors. Alleviating Factors: none. Associated Symptoms: no jaw locking, no headaches, jaw clicking, jaw popping Notes: <div>pt. denies jaw locking< /div><div>R = L TMJ clicking, minimal clicking unless the pt. does n't wear the splint she has clicking on an off throughout the day (quentin cially with eating), this occurs ~4-5 days/month</div> Note: <div>Patient presents today for insertion of a {{mandibular stabilization maxillary stabilization* repositioning mandibular advancement}} oral appliance. They note {{no changes in* improved worsening}} symptoms which along with prior data was reviewed, updated and documented in the patient histo ry of present illness. She describes {{compliance* partial compliance non- compliance}} with home self care as previously recommended.</div><div>
</div><div>Akil states that she began p/t today and plans to go weekly. She is still seeing a chiropractor as well. Marianoais off for the summer. 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 </div><div>
</div> Review of Systems ? Comprehensive General Adult ROS Reported By: Patient Constitutional: Constitutional: no fever, no night sweats, no significant weight gain, no significant weight loss, no exercise intolerance Eyes: Eyes: no dry eyes, no vision change, no irritation ENMT: Ears: no difficulty hearing, no ear pain. Nose: no frequent nosebleeds, no nose problems , no sinus problems. Mouth/Throat: no sore throat, no bleeding gums, no snoring, no dry mouth, no mouth ulcers, no oral abnorm alities, no teeth problems Cardiovascular: Cardiovascular: no chest charissa n, no arm pain on exertion, no shortness of breath when [place], no shortness of breath when lying down, no palpitations, no known heart murmur Respiratory: Respiratory: no cough, no wh eezing, no shortness of breath, no coughing up blood, no sleep apnea Gastrointestinal: Gastrointestinal: no abdomin al pain, no nausea, no vomiting, no constipation, normal appe tite, no diarrhea, not vomiting blood, no dyspepsia, no GERD Genitourinary: Genitourinary: no incontinen ce, no difficulty urinating, no hematuria, no increased freq uency Musculoskeletal: Musculoskeletal: no muscle a ches, no muscle weakness, no arthralgias/joint pain, no b ack pain Integumentary: Skin: no abnormal mole, no j aundice, no rashes Neurologic: Neurologic: no loss of consc iousness, no weakness, no numbness, no seizures, no di zziness, no migraines, no headaches, no tremor Psychiatric: Psych: no depression, no sle ep disturbances, feeling safe in a relationship, no anxiety, no hallucinations Endocrine: Endocrine: no fatigue Hematologic/Lymphatic: Hematologic/Lymphatic no swo llen glands, no bruising, no excessive bleeding Allergic/Immunologic: Allergy/Immunologic: no runn y nose, no sinus pressure, no itching, no hives Physical Exam ? CHTMD-TMJ Exam, CHTMD Genera l Exam Reported By: Patient TMJ: Mandibular ROM Maximum openi ng 22 mm (Active) no pain, left lateral excursion 7 mm no pa in, right lateral excursion 5 mm painful. TMJ palpation Later al capsule tenderness on palpation L TMJ. TMJ joint sounds no c licking, no crepitus, Closed locking L TMJ. Muscle Palpat ion Temporalis normal , Post-digastric normal , Medi al pterygoid (extra-oral) normal . Oral Cavity Oral mucosa WNL, Tongue WNL. Oral Cavity - Airway Obstruction oropharynx, hard palate WNL, uvula: WNL. Dental Occlusion Malocclusion: Angl e's classification Class I, both sides in Class I, both sides , Teeth: intercuspation right side posterior teeth, Horizontal overjet 1mm, Vertical overlap 1mm, R Second molar, R First mola r Constitutional: General Appearance oriented to time, place, and person, no acute distress Neck: Palpation Left side non-tend er, Right side non-tender Cervical Spine: Soft Tissue Palpation: no te nderness of the sternocleidomastoid Cardiovascular System: Arterial Pulses no pulse dis crepancy Neurological System: Cranial Nerves Cranial Nerve s II-XII Grossly Intact Psychiatric Exam: Affect Normal affect, Approp riate to situation. Mood Pleasant. Cognition: follows direction s and participates in evaluation thoroughly, [facility] WNL
--- OUTSIDE RECORDS SUMMARY | 2022-02-12 08:32 | XMS_ITS | Encounter Summary ---
:1990 Author Care Team Providers Name Role Phone Dr. Darcy Bowles Referring Provider [phone] Darcy Bowles DDS Referring Provider [phone] Karrie Cm [place] Physical Therapist [phone] Reason for Visit Limited opening of mandible; Myofascial pain; Articular disc disorder of temporomandibular joint Assessment and Plan Assessment Note Today I reviewed the diagnosis, contrib uting factors and treatment options. I reviewed and reinforced continued use of self care and home exercises. I encouraged daily home care use which may consist o f heat and ice compresses, oral habit re duction and relaxation techniques. The intraoral appliance was adjusted to patient comfort. I explained that if she still cannot tolerate the splint then I will fabricate a mandibular splint at no charge. History today was obtained from the osorio ent. The patient has 3 diagnoses which we are addressing. Their symptoms are improving. This case is moderate complexity because of multiple diagnoses with chroni c symptoms. Risk of complications includ e disease/symptom progression were discussed. Today time spent may have included a review of past records, history taking, review of diagnoses, contributing facto rs, treatment plan, diagnostic testing, prognosis, expectations, risks and complications of treatment/no treatment, discussions with other providers and completing documentation was 25 minutes. I sugges josephine that (s)he return for follow-up care in 3-4 months. 1. Myofascial pain masticatory 2. Limited opening [...] Medications Administered None recorded. Vitals Blood Pressure 104/60 mm[Hg] Results Lab Results None recorded. Allergies Code Code System Name Reaction Severity Onset NKDA ? ? ? Problems Name Status Onset Date Source ? 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 Myofascial Pain Active 12/01/2016 ? 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 Procedures Date Name Performed by ? ? [facility] Teeth Extraction Information not available Vaccine List [...] you feel stressed (tense, restless, nervous, or [id number] anxious, or unable to sleep at night)? 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 Past Encounters 12/29/2021 Myofascial Pain; Limited Opening of Julio ible; Articular Disc Disorder of Temporomandibular Joint Adamaris Zimmer Nancy, DDS: [address] [facility], [address], [place] [address], Ph. History of Present Illness ? Jaw [...] therapy. Associated Symptoms: no jaw locking, no headaches. Prior Tests: pano nica. Prior Treatment: nightguard, physical therapy Notes:
? Jaw joint noises [...] ~4-5 days/month</div> Note: <div>Patient presents today for follow-up. They report jaw symptoms which are {{improved* worsened unchanged resolved}} since the previous visit. Symptoms and pertinent information along with prior data was reviewed, updated and documented in the patient history of present illness. Patient rates the pain intensity as {{0* 1 2 3 4 5 6 7 8 9 10}} on a scale of 0 to 10. Patient is {{engaged in not engaged in partially engaged in* completed discontinued}} active treatment at this time.</div><div>
</div><div>Akil states that she has had 5-6 sessions of p/t at [facility] in [place] with [place]. She states that she is very happy with the treatment. She isnot having any pain and her ROM has improved. Akil has not been wearing her maxillary splint because she cannot close all the way around it. She states that she preferred her mandibular splint.</div><div>Akil is off for the summer. 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 </div><div>
</div> Review of Systems ? [...] Patient TMJ: Mandibular ROM Maximum openi ng 36 mm (Active) no pain, left lateral excursion 7 mm no pa in, right lateral excursion 5 mm no pain. TMJ palpation TMJ p alpation was non-painful. TMJ joint sounds no clicking, no crepitus, Closed locking L TMJ. Muscle Palpation No complain ts of pain/tenderness in the muscles of mastication, Temp oralis normal , Post-digastric normal , Medial pterygoid (e xtra-oral) normal . Oral Cavity Oral mucosa WNL, Tongue WNL. Oral Cavity - Airway Obstruction oropharynx, hard palate WNL, uvula: WNL. Dental Occlusion Malocclusion: Angle's classi fication Class I, both sides in Class I, both sides, Teeth: intercuspation right side posterior teeth, Horizontal [...]
== END 2022-02-12 08:30 | disposition home or self-care (01) ==
LOC: US 08:30
PROVIDERS: PCP Physician Assistant Medical; Visit Provider Physician Assistant
DX: Z34.92 Encounter for supervision of normal pregnancy, unspecified, second trimester (principal); Z3A.18 18 weeks gestation of pregnancy
CPT/HCPCS: 76805

== ENCOUNTER 2022-04-01 17:51 | Outpatient (CLI) | payer OTHER, SELFPAY ==
--- OUTSIDE RECORDS SUMMARY | 2022-04-01 08:47 | XMS_ITS | Encounter Summary ---
:1990 Author Organization [facility] Address [address] [place] [address]. [place] [address] Care Team Providers Name Role Phone Soraya Castrejon PA-C Unavailable [facility] Clinics- Encounter Details Date Type Department Care Team Description 05/01/2019 Travel Social History Tobacco Use Types Packs/Day Years Used Date Smoking Tobacco: Never Smokeless Tobacco: Never Alcohol Use Standard Drinks/Week Comments No 0 (1 standard drink = 0.6 oz pure alcoho l) Sex Assigned at Date Recorded Not on file documented as of this encounter Plan of Treatment Not on filedocumented as of this encounter Visit Diagnoses Not on filedocumented in this encounter Care Teams Developer Designer Relationship Specialty Start Date End Date [facility] And PCP - General 05/01/19 [facility]- [address] [place] [address] Soraya Castrejon PA-C Assigned PCP 04/30/18 04/25/21 [address] [place] [address] documented as of this encounter
--- OUTSIDE RECORDS SUMMARY | 2022-04-01 08:47 | XMS_ITS | Clinical Summary ---
:1990 Author Organization [facility] Address [address] [place] [address]. [place] [address] Care Team Providers Name Role Phone [facility]- Allergies No known active allergies Medications [...] Comments Blood Pressure 123/67 05/01/2019 6:30 AM FINISHED GOODS STOCK CLERK Pulse 73 05/01/2019 6:30 AM FINISHED GOODS STOCK CLERK Temperature 36.6 ??C (97.9 ??F) 05/01/2019 5:25 AM FINISHED GOODS STOCK CLERK Respiratory Rate 18 05/01/2019 5:25 AM FINISHED GOODS STOCK CLERK Oxygen Saturation 100% 05/01/2019 6:30 AM FINISHED GOODS STOCK CLERK Inhaled Oxygen Concentration - - Weight 66.7 kg (147 lb) 04/19/2018 3:54 PM FINISHED GOODS STOCK CLERK Height 165.1 cm (5' 5) 04/19/2018 3:54 PM FINISHED GOODS STOCK CLERK Body Mass Index 24.46 04/19/2018 3:54 PM FINISHED GOODS STOCK CLERK Plan of Treatment Health Maintenance Due Date Last Done Comments ADVANCE CARE PLANNING 1990 ANNUAL REVIEW OF HM ORDERS 1990 HEPATITIS B IMMUNIZATION (1 1991 of 3 - 3-dose series) LIPID 1991 YEARLY PREVENTIVE VISIT 1991 COVID-19 Vaccine (#1) 1991 HIV SCREENING 2006 HEPATITIS C SCREENING 2009 DTAP/TDAP/TD IMMUNIZATION (1 2016 - Tdap) PAP 01/31/2021 01/31/2018, 01/31/2018 PHQ-2 (once per calendar 06/13/2021 04/19/2018 year) INFLUENZA VACCINE (#1) 2022 04/13/2019, 04/16/2018, 03/20/2016 IPV IMMUNIZATION Aged Out No longer eligi [...] T ype Group Dates PREFERREDONE PREFERREDONE HMO [id number] 2016-[place]ikk[place] [phone] [address] [address] [address]PO [address] [place] [address] Care Teams Unit Manager [employer] Relationship Specialty Start Date End Date [facility] And PCP - General 05/01/19 [facility]- [address] [place] [address]
--- OUTSIDE RECORDS SUMMARY | 2022-04-01 08:47 | XMS_ITS | Clinical Summary ---
:1990 Author Organization [facility] [place] [address] Care Team Providers Name Role Phone Clinic, [...] jaw dysfunction [place] Tobias, PT 01/14/2022 Travel from Last 3 Months Immunizations Name Administration Dates Next Due Influenza, IIV4 04/13/2019, 04/16/2018 Social History Tobacco Use Types Packs/Day Years Used Date Never Assessed Sex Assigned at Date Recorded Not on file Obstetrics History Last Filed Vital Signs Vital Sign Reading Time Taken Comments Blood Pressure 116/71 05/31/2020 10:03 AM HOUSE SUPERVISOR Pulse 67 05/31/2020 10:03 AM HOUSE SUPERVISOR Temperature 35.8 ??C (96.4 ??F) 05/31/2020 10:03 AM HOUSE SUPERVISOR Respiratory Rate 16 05/31/2020 10:03 AM HOUSE SUPERVISOR Oxygen Saturation 97% 05/31/2020 10:03 AM HOUSE SUPERVISOR Inhaled Oxygen Concentration - - Weight - - Height - - Body Mass Index - - Plan of Treatment Health Maintenance Due Date [...] ss Type Group PREFERRED ONE PREFERRED ONE [id number] 2017-Present [address] [place] [address] Care Teams Xm1 Tank Driver Relationship Specialty Start Date End Date Clinic, No Pcp Or PCP - General 12/29/21 .
--- OUTSIDE RECORDS SUMMARY | 2022-04-01 08:47 | XMS_ITS | Encounter Summary ---
:1990 Author Organization [facility] Address [facility] [place] [address] Care Team Providers Name Role Phone Soraya Castrejon PA-C Unavailable [facility] Clin[facility]- Reason for Visit Reason Comments Facial Swelling Encounter Details Date Type Department Care Team Description 05/01/2019 Emergency [facility] Kev Woodall, Allergic reaction, initial encounter; [facility] Emergency Dep t Facial swelling; [address] [facility] , incidental [place], [place] [address] [address] [address] [place] [address] (Wo rk) Social History Tobacco [...] Comments Blood Pressure 123/67 05/01/2019 6:30 AM WHEELAGE CLERK Pulse 73 05/01/2019 6:30 AM WHEELAGE CLERK Temperature 36.6 ??C (97.9 ??F) 05/01/2019 5:25 AM WHEELAGE CLERK Respiratory Rate 18 05/01/2019 5:25 AM WHEELAGE CLERK Oxygen Saturation 100% 05/01/2019 6:30 AM WHEELAGE CLERK Inhaled Oxygen Concentration - - Weight - - Height - - Body Mass Index - - documented in this encounter Discharge Instructions Discharge InstructionsKev Woodall MD - 05/01/2019 6:41 AM WHEELAGE CLERK Discharge Instructions Allergic Reaction An allergic reaction [...] contain Tylenol?? (acetaminophen), including Vicodin??, Tylenol #3??, Savannah??, Lortab??, and Percocet??. You should not take [...] if there is anything that worries you. LAGE CLERK documented in this encounter Medications at Time [...] or throat swelling. Unknown allergies. ABCs intact. LAGE CLERK Kev Woodall MD - 05/01/2019 5:22 AM [...] patient is non-tearful. Emergency Department Course Interventions: 0551 Decadron 4 mg PO Benadryl 25 mg [...] statements to me. Kev Woodall MD 05/01/19 9772 LAGE CLERK documented in this encounter Plan of [...] tablet 4 mg Given 05/01/2019 5:51 AM WHEELAGE CLERK 4 mg 4 mg, Oral, ONCE, On Tue05/01/19 at 0547, For 1 dose diphenhydrAMINE (BENADRYL) injection 25 mg Given 05/01/2019 5:51 AM WHEELAGE CLERK 25 mg 25 mg, Intravenous, ONCE, On [...] Recently Administered Medications Times are shown in WHEELAGE CLERK. Scheduled Medication Order 04/29/2019 04/30/201905/0105/01/2019 dexamethasone (DECADRON) tablet 4 mg (COMPLETED) 0551 [...] meds documented in this encounter Care Teams Hotel Server Relationship Specialty Start Date End Date [facility] And PCP - General 05/01/19 [facility]- [address] [place] [address] Soraya Castrejon PA-C Assigned PCP 04/30/18 04/25/21 [address] [place] [address] documented as of this encounter
--- OUTSIDE RECORDS SUMMARY | 2022-04-01 08:47 | XMS_ITS | Encounter Summary ---
:1990 Author Organization [facility] Address [address] [place] [address] Care Team Providers Name Role Phone Unavailable Primary Care Provider Unavailable Reason for Visit Appointment Request (Routine) - Closed Specialty Diagnoses / Procedures Referred By Contact Refer red To Contact Nephrology and [facility], Hypertension Karen Do M.D. [address] [place] [address] Referral ID Status Reason Start Date Expiration Date Visits Requ ested Visits Authorized [id number] Closed 02/28/2020 02/27/2021 1 1 Encounter Details Date Type Department Care Team Description 03/12/2020 External Outreach Division of Lance Diggs (Primary Nephrology and Waldemar Dawson Jr., Dx) Hypertension in [place], [place] [address] [facility] [address] [place] [address] [phone] Social History Tobacco Use Types Packs/Day Years Used Date Smoking Tobacco: Never Assessed Sex Assigned at Date Recorded Not on file documented as of this encounter Consult Notes Waldemar Diggs Jr., D.O. - 03/12/2020 10:00 AM CDT Please see scanned in note under document viewer tab for the [facility] outreach visit from this date. documented in this encounter Plan of Treatment Not on filedocumented as of this encounter Visit Diagnoses Diagnosis Proteinuria - Primary documented in this encounter
--- OUTSIDE RECORDS SUMMARY | 2022-04-01 08:47 | XMS_ITS | Encounter Summary ---
:1990 Author Organization [facility] Address [address] [place] [address]. [place] [address] Care Team Providers Name Role Phone [facility] Primary Care Provider [phone] Reason for Visit Reason Comments Eye Problem Encounter Details Date Type Department Care Team Description 04/19/2018 Office Visit [facility], Ramon Rascon ritation of left eye (Primary Dx); Clinic [facility] health care [address] [place] [address] 5 [phone] Social History Tobacco Use Types Packs/Day Years Used Date Smoking Tobacco: Never Smokeless Tobacco: Never Alcohol Use Standard Drinks/Week Comments No 0 (1 standard drink = 0.6 oz pure alcoho l) Sex Assigned at Date Recorded Not on file documented as of this encounter Last Filed Vital Signs Vital Sign Reading Time Taken Comments Blood Pressure 118/68 04/19/2018 3:54 PM MEDICAL APPARATUS MODEL MAKER Pulse 92 04/19/2018 3:54 PM MEDICAL APPARATUS MODEL MAKER Temperature 36.8 ??C (98.2 ??F) 04/19/2018 3:54 PM MEDICAL APPARATUS MODEL MAKER Respiratory Rate - - Oxygen Saturation 98% 04/19/2018 3:54 PM MEDICAL APPARATUS MODEL MAKER Inhaled Oxygen Concentration - - Weight 66.7 kg (147 lb) 04/19/2018 3:54 PM MEDICAL APPARATUS MODEL MAKER Height 165.1 cm (5' 5) 04/19/2018 3:54 PM MEDICAL APPARATUS MODEL MAKER Body Mass Index 24.46 04/19/2018 3:54 PM MEDICAL APPARATUS MODEL MAKER documented in this encounter Progress Notes Soraya [...] cough and runny nose. 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 The creation of this document is based on the provider's statements to the medical parasitologist. Eneida Tolliver April 19, 2018 4:12 PM [...] days Preventative health care Updating chart to [facility] No Follow-up on file. The information in this document, created by the medical parasitologist for me, accurately reflects the services I personally performed and the decisions made by me. I have reviewed and approved this document for accuracy prior to leaving the patient care area. April 19, 2018 4:12 PM Soraya Castrejon, MS, NICOL [facility] CAL APPARATUS MODEL MAKER documented in this encounter Plan of Treatment Not on filedocumented as of this encounter Procedures Procedure Name Priority Date/Time Associated Diagnosis Comme nts ABSTRACT PAP (HIM Routine 01/31/2018 Preventative health car e Results for this EXTERNAL RESULT) procedure a re in the results section . documented in this encounter Results ABSTRACT PAP-NO CHARGE (01/31/2018) [facility] gist Method Time Signature PAP-ABSTRACT See Scanned Document Specimen (Source) Anatomical Location Collection Method / Collectio n Time Received Time / Laterality Volume 01/31/2018 Narrative Soraya Castrejon PA-C - 01/31/2018 Normal - [facility]- See Care Everywhere Soraya Castrejon PA-C LAB - [facility] EXTERNAL RESULT documented in this encounter Visit Diagnoses Diagnosis Irritation of left eye - Primary Other ill-defined disorder of eye Preventative health care Routine general medical examination at a health care facility documented in this encounter Care Teams Airplane Rental Clerk Relationship Specialty Start Date End Date [facility], [facility] PCP - General 08/02/16 04/30/19 [employer] [place] [address] documented as of this encounter
--- OUTSIDE RECORDS SUMMARY | 2022-04-01 08:47 | XMS_ITS | Clinical Summary ---
:1990 Author Organization [facility] Address [address] [place] [address] Care Team Providers Name Role Phone Unavailable Primary Care Provider Unavailable Source Comments Patient records contain information from all sites at [facility]. For routine questions regarding patient records, call [phone] during business hours, M-F 8:00 AM - 5:00 PM Central Time. Record requests for emergency care only can be directed to [phone] at any time.[facility] Active Problems Problem Noted Date Proteinuria 03/12/2020 Social History Tobacco Use Types Packs/Day Years Used Date Smoking Tobacco: Never Assessed Sex Assigned at Date Recorded Not on file Plan of Treatment Health Maintenance Due Date Last Done Comments Cervical Cancer Screening 1990 HIV Screening 1990 Hepatitis B Vaccines (1 of 1991 3 - 3-dose series) Hepatitis C Screening 1990 COVID-19 Vaccine (3 - 10/10/2020 08/15/2020, 07/18/2020 Booster for Moderna series) Depression [...] Address T ype Group Dates PREFERREDONE PREFERREDONE [id number] 2019-Pre [phone] PPO ADMINISTRATIVE ADMINISTRATIVE sent [phone] SERVICES SERVICES [place] [phone]
--- OUTSIDE RECORDS SUMMARY | 2022-04-01 08:47 | XMS_ITS | Encounter Summary ---
:1990 Author Organization [facility] Address [address] [place] [address]. 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 ([id number]) MENT REPAIRER Reason for Visit Reason Comments Headache Nausea & Vomiting Encounter Details Date Type Department Care Team Description 08/02/2016 Emergency [facility] Leoncio Bashir MD [facility] [address] [place] [phone] [place], [place] [address] (Wo rk) Social History Tobacco Use Types Packs/Day Years Used Date Smoking Tobacco: Never Smokeless Tobacco: Never Alcohol Use Standard Drinks/Week Comments No 0 (1 standard drink = 0.6 oz pure alcoho l) Sex Assigned at Date Recorded Not on file documented as of this encounter Last Filed Vital Signs Vital Sign Reading Time Taken Comments Blood Pressure 122/73 08/02/2016 8:16 AM ARMAMENT REPAIRER Pulse 77 08/02/2016 8:16 AM ARMAMENT REPAIRER Temperature 37.1 ??C (98.7 ??F) 08/02/2016 8:16 AM ARMAMENT REPAIRER Respiratory Rate 18 08/02/2016 8:16 AM ARMAMENT REPAIRER Oxygen Saturation 100% 08/02/2016 8:16 AM ARMAMENT REPAIRER Inhaled Oxygen Concentration - - Weight 63.5 kg (140 lb) 08/02/2016 8:16 AM ARMAMENT REPAIRER Height 165.1 cm (5' 5) 08/02/2016 8:16 AM ARMAMENT REPAIRER Body Mass Index 23.3 08/02/2016 8:16 AM ARMAMENT REPAIRER documented in this encounter Discharge Instructions Discharge InstructionsLeoncio Bashir MD - 08/02/2016 11:16 AM ARMAMENT REPAIRER Images from the original note were not [...] nausea, vomiting, and dizziness, you may use eeqq-hlj-ulhtfkg motion sickness pills.??Askyour pharmacist for suggestions. Follow-up [...] vision ?? Loss of consciousness? Seizure ?? [phone] [place] [address]. All rights reserved. This information is not intended as a substitute for professional medical care. Always follow your healthcare professional's instructions. MENT REPAIRER documented in this encounter Medications at Time [...] 08/02/2016 10:38 AM CST Ambulated patient in [place], stated she felt week but better. Patient did vomit. MENT REPAIRER Ann Marie Cano RN - 08/02/2016 8:14 AM CST Pt has been vomiting in the morning X 4 days. Pt also c/o feeling lightheaded. Pt was seen in on Tuesday and given zofran without relief. Pt report spinning and headache. Pt denies possibility of . Pt took zofran at home without relief. MENT REPAIRER Leoncio Bashir MD - 08/02/2016 7:58 AM [...] current symptoms. Junior maneuver done with head [id number] degrees left. Repeated x 1. 1041 The [...] every 6 hours as needed for dizziness Yvette Coreas am serving as a scribe on 08/02/2016 at 8:43 AM to personally document services performed by Leoncio Bashir MD based on my observations and the provider's statements to me. Yvette Reid 08/02/2016 [facility] EMERGENCY DEPARTMENT Leoncio Bashir MD 08/02/16 1223 MENT REPAIRER documented in this encounter Plan of Treatment Scheduled Referrals Name Type Priority Associated Diagnoses Order S [facility] PHYSICAL THERAPY REFERRAL Referral Routine Vertigo Or dered: 08/02/2016 documented as of this encounter Visit Diagnoses Diagnosis Vertigo Dizziness and giddiness documented in this encounter Administered Medications Inactive Administered Medications - up to 3 most recent administrations Medication Order MAR Action Action Date Dose Rate Site meclizine (ANTIVERT) tablet 25 mg Given 08/02/2016 9:20 AM ARMAMENT REPAIRER 25 mg 25 mg, Oral, ONCE, On Tue08/02/16 at 0857, For 1 dose ondansetron (ZOFRAN-ODT) ODT tab 8 mg Given 08/02/2016 11:11 AM ARMAMENT REPAIRER 8 mg 8 mg, Oral, ONCE, On Tue08/02/16 at 1037, For 1 dose documented in this encounter Active and Recently Administered Medications Times are shown in ARMAMENT REPAIRER. Scheduled Medication Order 07/31/2016 08/01/2016 08/02/2016 meclizine (ANTIVERT) tablet 25 mg (COMPLETED) 0920 (Given - Provider: Amanda Mcpherson, RENA) 25 mg, Oral, ONCE, 08/02/16 at 0857, For 1 dose ondansetron (ZOFRAN-ODT) ODT tab 8 mg (COMPLETED) 1111 (Given - Provider: Amanda Mcpherson RN) 8 mg, Oral, ONCE, 08/02/16 at 1037, For 1 dose documented in this encounter Care Teams Timber Buyer Relationship Specialty Start Date End Date Clinic, [facility] PCP - General 08/02/16 04/30/19 [place] [address] documented as of this encounter
--- OUTSIDE RECORDS SUMMARY | 2022-04-01 08:47 | XMS_ITS | Encounter Summary ---
:1990 Author Organization [place] Address [facility] hospital[facility] [place] [address] Care Team Providers Name Role Phone [facility] Primary Care Provider [phone] Reason for Visit Rehab Therapy Integrated Services - Closed Specialty Diagnoses / Procedures Referred By Contact Refer red To Contact Diagnoses [facility] [address] [place], [place] [address] Phone: Fax: Referral ID Status Reason Start Date Expiration Date Visits V isits Requested Authorized [facility] - Closed 08/02/2016 06/12/2017 365 365 PT/OT/PART MAKER ([id number]) Encounter Details Date Type Department Care Team Description 08/09/2016 Hospital Encounter [facility] Eulogio Bashir MD [facility] [address] [facility] [address] [place], [place] [address] Rehabilitation Services Marlena Thacker, PT [facility] [address] [place] [address] Social History Tobacco Use Types [...] Shake Horizontal Nystagmus Negative Positional testing Negative Kent-Hallpike (right) Negative Rico-Hallpike (Left) Negative HSCC Supine Roll Test (Right) [...] (sum of timed and untimed services) 40 KEN CUTTER documented in this encounter Miscellaneous Notes Addendum Note - Marlena Thacker, PT - 08/09/2016 11:59 PM CHICKEN CUTTER Encounter addended by: Marlena Thacker, PT on: 07/08/2018 7:12 PM Actions taken: Sign clinical note, Flowsheet accepted, Episode resolved KEN CUTTER documented in this encounter Plan of Treatment Not on filedocumented as of this encounter Visit Diagnoses Not on filedocumented in this encounter Care Teams Business Asst Relationship Specialty Start Date End Date [facility] PCP - General 08/02/16 04/30/19 [address] [place] [address] documented as of this encounter
--- OUTSIDE RECORDS SUMMARY | 2022-04-01 08:47 | XMS_ITS | Encounter Summary ---
:1990 Author Organization [facility] Address [facility]ly [facility] [address] Care Team Providers Name Role Phone [facility], [facility] Primary Care Provider [phone] Reason for Visit Rehab Therapy Integrated Services - Closed Specialty Diagnoses / Procedures Referred By Contact Refer red To Contact Diagnoses Vert[facility] [address] [place], [place] [address] Phone: Fax: Referral ID Status Reason Start Date Expiration Date Visits V isits Requested Authorized [facility] - Closed 08/02/2016 06/12/2017 365 365 PT/OT/MORGUE LIBRARIAN ([id number]) Encounter Details Date Type Department Care Team Description 08/02/2016 Hospital Encounter [facility] Eulogio Bashir MD [facility] [address] [facility] [address] [place], [place] [address] Rehabilitation Services Marlena Thacker, PT [facility] [address] [place] [address] Social History Tobacco Use Types [...] 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 [...] Nystagmus Negative Head Shake Horizontal Nystagmus Negative [place]-Hallpike (right) Negative [place]-Hallpike (Left) Other Rico-Hallpike (left) comments L downward diagonal short duration [...] Evaluation Time Total Evaluation Time (Minutes) 50 L HANDLER documented in this encounter Plan of Treatment Scheduled Referrals Name Type Priority Associated Diagnoses Order S [facility] PHYSICAL THERAPY REFERRAL Referral Routine [facility] Or dered: 08/02/2016 documented as of this encounter Visit Diagnoses Not on filedocumented in this encounter Care Teams Ediscovery Project Manager Relationship Specialty Start Date End Date Clinic, [facility] PCP - General 08/02/16 04/30/19 [place] [address] documented as of this encounter
--- OUTSIDE RECORDS SUMMARY | 2022-04-01 08:48 | XMS_ITS ---
:1990 Author Care Team Providers Name Role Phone DR. EDDIE STANTON Referring Provider [phone] EDDIE STANTON DDS Referring Provider [phone] [facility] Physical Therapist [phone] Allergies Code Code System Name Reaction Severity Status Onset NKDA ? Medications Name Status Start Date Stop Date ? ? amoxicillin 875 mg tablet Completed ? 2021 TAKE 1 TABLET BY MOUTH TWICE A DAY FOR 10 DAYS mupirocin 2 % topical ointment Completed ? 0 09/21/2021 APPLY THIN LAYER IN NOSTRILS 3 TIMES PER DAY FOR 10 DAYS znmzuxhk-pqfjlugtc-ffdntwlce 3.5 mg-10,000 unit/mL-1 % ear d rops,susp [...] Procedures Date Name Performed by ? ? [place] Teeth Extraction Information not available 12/01/2016 XR, Orthopantogram [address] [place] [address] (Work Place) Results Lab Results Date Name Specimen Result Interpretation Description Value Range Status Address ? ? XR, Orthopantogram ? No observation ? ? ? [place]: [address]. [facility] [address], [place] Past Encounters 12/29/2021 Myofascial Pain; Limited Opening of Julio ible; Articular Disc Disorder of Temporomandibular Joint Adamaris Cruz, DDS: [address], [address], [place] [address], Ph. 11/23/2021 Myofascial Pain; Limited Opening of Julio ible; Articular Disc Disorder of Temporomandibular Joint Adamaris Cruz, DDS: [address], [address], [place] [address], Ph. 09/21/2021 Myofascial Pain; Limited Opening of Julio ible; Articular Disc Disorder of Temporomandibular Joint; Arthralgia of Temporomandibular Joint Adamaris Cruz, DDS: [address], [address], [place] [address], Ph. 12/30/2020 Myofascial Pain; Articular Disc Disorder of Temporomandibular Joint; Limited Opening of Mandible Adamaris Cruz, DDS: [address], [place] [address], Ph. Social History Tobacco Smoking Status Never [...]
--- OUTSIDE RECORDS SUMMARY | 2022-04-01 08:48 | XMS_ITS | Encounter Summary ---
:1990 Author Organization [place] Address [address] [place] [address] Care Team Providers Name Role Phone Unavailable Primary Care Provider Unavailable Reason for Visit Reason Comments Otalgia Pharyngitis Encounter Details Date Type Department Care Team Description 10/14/2014 Office Visit [facility] Lily Salgado Strepto coccal pharyngitis (Primary Dx); Clinic [facility] Do APRN CNP Sore throat [address] [place] [phone] Social History Tobacco Use Types Packs/Day Years Used Date Smoking Tobacco: Never Smokeless Tobacco: Never Alcohol Use Standard Drinks/Week Comments Yes 0 [...] in this encounter Patient Instructions Patient Lily Mascorro, RAYSHAWN WIDE AREA NETWORK ENGINEER - 10/14/2014 5:14 PM CDT Images from [...] because you feel better. Acetaminophen (Tylenol??) or mjly-qci-mcznuco anti-inflammatory medicine such as ibuprofen (Motrin??, Advil??) [...] You can also carry an alcohol-based hand venetian blind cleaner with you toclean your hands when [...] 137 lb (62.143 kg) Labs reviewed in [facility] Problem list, Medication list, Allergies, and Medical/Social/Surgical histories reviewed in [facility] andupdated as appropriate. ROS: Constitutional, [...] with plan of care. Lily Emanuel APRN, CNP [facility] [place] documented in this encounter Nursing Notes Mu [...] kg). BP completed using cuff size: regular Izabellaba Jojo COLIN documented in this encounter Plan [...] Component Value Ref Test Analysis Performed At [facility] Range Method Time Signature Specimen Throat [facility] Description CLINICS [place] Rapid Strep A POSITIVE: Group [place] Screen A Streptococcal CLINICS antigen detected [place] by immunoassay. (A) Micro Report FINAL 10/14/2014 [place] Status CLINICS [place] Specimen Anatomical Collection Method Collection Time Receive d Time (Source) Location / / Volume Laterality Specimen from 10/14/2014 5:10 PM 10/15/19 15 5:12 throat CDT PM CDT (specimen) Lily Salgado APRN, CNP LAB - MICRO GENERAL ORDERABL ES Performing Organization Address City/State/ZIP Code Phon e Number [address] [address] documented in this encounter Visit Diagnoses Diagnosis Streptococcal pharyngitis - Primary Streptococcal sore throat Sore throat Acute pharyngitis documented in this encounter
--- OUTSIDE RECORDS SUMMARY | 2022-04-01 08:48 | XMS_ITS | Encounter Summary ---
:1990 Author Organization [facility] Address [address] [place] [address] Care Team Providers Name Role Phone Unavailable Primary Care Provider Unavailable Reason for Visit Reason Comments Sinus Problem Encounter Details Date Type Department Care Team Description 04/01/2014 Office Visit [facility] Lily Doss axillary Clinic [place] RAYSHAWN Do CNP sinusitis (Primary Dx) [address] [place] [phone] Social History Tobacco Use Types Packs/Day Years [...] this encounter Patient Instructions Patient Lily Mascorro LODGING FACILITIES MANAGER - 04/01/2014 4:20 PM CDT Images from [...] and throat doctor (called an ENT or asbestos microscopist). The specialist will check for polyps or a deformed bone that may be blocking your sinuses. Published by [employer]. This content is reviewed periodically and is subject to change as new health information becomes available. The information is intended to inform and educate and is not a replacement for medical evaluation, advice, diagnosis or treatment by a healthcare professional. Developed by [employer]. ? 2010 [employer] and/or its affiliates. All Rights Reserved. Copyright [...] GFRESTBLACK, MICROALBUMIN, POTASSIUM, TSH, in the last 04768 hours BP Readings from Last 3 Encounters: 04/01/14 126/64 Wt Readings from Last 3 Encounters: 04/01/14 137 lb (62.143 kg) Labs reviewed in [facility] Problem list, Medication list, Allergies, and Medical/Social/Surgical histories reviewed in [facility] andupdated as appropriate. ROS: C: NEGATIVE for [...] with plan of care. Lily Emanuel RN, [facility] documented in this encounter Nursing Notes Mu [...] BP completed using cuff size: regular Csaba Mlnaicha DADO OPERATOR documented in this encounter Plan of Treatment Not on filedocumented as of this encounter Visit Diagnoses Diagnosis Acute maxillary sinusitis - Primary documented in this encounter
--- OUTSIDE RECORDS SUMMARY | 2022-04-01 08:48 | XMS_ITS | Encounter Summary ---
:1990 Author Organization [facility] Address [address] [place] [address] Care Team Providers Name Role Phone Unavailable Primary Care Provider Unavailable Reason for Visit Reason Onset Date Comments Panel Management 11/27/2014 Encounter Details Date Type Department Care Team Description 11/27/2014 Telephone [facility] Lily Salgado, Panel Management [address] [address] [place] [address] [phone] Social History Tobacco Use Types Packs/Day Years [...]
[2022-04-02 13:53] LABS: Rapid Plasma Reagin (RPR) Non Reactive (Non Reactive)
== END 2022-04-01 17:52 | disposition home or self-care (01) ==
PROVIDERS: PCP Physician Assistant Medical; Visit Provider Advanced Practice Midwife
DX: Z34.92 Encounter for supervision of normal pregnancy, unspecified, second trimester (principal); Z3A.25 25 weeks gestation of pregnancy
CPT/HCPCS: 86592

== ENCOUNTER 2022-06-11 14:52 | Outpatient (CLI) | payer OTHER, SELFPAY ==
[2022-06-12 16:11] LABS: Strep B DNA Probe NEGATIVE (Negative)
[2022-06-12 17:06] LABS: Strep B Pen/Amox Allergy No
== END 2022-06-11 14:53 | disposition home or self-care (01) ==
LOC: NFLDREF 14:52
PROVIDERS: PCP Physician Assistant Medical; Visit Provider Obstetrics & Gynecology
DX: Z34.83 Encounter for supervision of other normal pregnancy, third trimester (principal)
CPT/HCPCS: 87081; 87653

== ENCOUNTER 2022-07-10 04:27 | Inpatient (IN) | payer OTHER, SELFPAY ==
[2022-07-10] VITALS (48 sets, daily range): BP systolic 87–140; BP diastolic 38–82; PULSE 66–100; RESP 16–18; TEMP 36.4–37.1; O2SAT 91–100; BMI 31.9
[2022-07-10] MEDS: LACTATED RINGERS 1000 ML 1,000 ML 999 ML IV (05:08)
[2022-07-10] MEDS: ONDANSETRON 2 MG/ML inj 4 MG IV (05:22)
--- NOTE | 2022-07-10 05:29 | P.LDBA_ITS ---
Subjective History of Present Illness Date Seen: 07/10/22 Narrative: Patient is being admitted to Labor and Delivery for labor contractions which started approximately at 0030 this evening. She is a 32 year old at 40 1/7 weeks gestation. Her full history and physical was dictated by Rae Yepez CNM on 06/20/2022. Please see this for details. Thrombocytopenia problem noted on H&P, not lised in OB problem list, in review of chart most recent platelets were 213. Diagnosis removed. OB Problem list 1. History of Raynaud's phenomena with nipple pain. Patient reports no relief with nifedipine in the past. 2. History of Stress incontinence with pain w/ 1st . Improvement with pelvic floor PT. Patient resuming PT in early . 3. Oral HSV Rx sent for Valtrex 500 mg BID, take as needed for outbreaks 4. Hx of a 3rd degree lac w/ 1st baby High anxiety, prefers not to delivery on back 5. EFW 13% w/ routine anatomy scan May consider growth follow-up if she measures small OB - Problem Based A/P Additional Plan (1) Pain during labor: Status: Acute Plan ASSESSMENT:? 32yo at 40 1/7 weeks gestation? complicated by:?Hx of 3rd degree laceration Labor type: spontaneous, active labor? Category 1 FHR pattern.?? Labor complicated by: none? GBS negative? ? PLAN:? 1. Routine intrapartum cares as ordered. Continue with expectant management? 2. Monitoring per policy, continuous with epidural? 3. Planning to wait and see but is leaning towards epidural. Candidate for analgesia of choice.?? 4. Patient encouraged to reposition and ambulate to promote physiologic labor and .?Recommend position changes after epidural placement. Patient desires to not deliver on back. 5. Anticipate ? Exam by James ARIAS with supervision by Jeannine Yepez CNM Delivery/Labor/Induction Plan Plan: expectant management OB Exam Physical Exam Vital signs: Pulse BP Pulse Ox 75 115/61 97 07/10/22 04:22 07/10/22 04:22 07/10/22 04:28 Narrative: Labor admit exam? Vitals Reviewed? Psychiatric:? Alert and oriented x3? HEENT:? Normocephalic, atraumatic? Neck:? Supple?? Lungs:? Clear to auscultation bilaterally? Heart:? Regular rate and rhythm, no murmur, rub or gallop? Abdomen:? Soft, nontender, and gravid. Vertex confirmed with cervical exam by RN .? Extremities:? No edema or erythema? Detailed Labor and Delivery Exam Patient Gravid: Yes Dilation (cm): 5 Effacement (%): 80 (per RN) Contraction Frequency: 2-5 Contraction duration (sec): 60 Tachysystole: No Contraction intensity: Moderate Fetus (Single) Heart Rate Baseline: 135 Monitor Accelerations: Present Monitor Decelerations: None Label Sewer Variability: Moderate (6-25)
[2022-07-10 05:39] LABS: SARS PCR* Negative SARS-CoV-2 (Negative)
[2022-07-10] MEDS: ROPIVACAINE 0.2% 100 ml 100 ML 12 MG EPIDURAL (05:43)
[2022-07-10] MEDS: LIDOCAINE 2% (PF) 5 ML VIAL EPIDURAL (05:43)
[2022-07-10] MEDS: ROPIVACAINE 0.2 % PF 10 ML INJ 20 MG EPIDURAL (05:43)
--- NOTE | 2022-07-10 06:02 | P.ANBPRC_ITS ---
[facility] Medical History (Updated 07/10/22 @ 05:40 by Jeannine Yepez CNM) Balance problems (07/2016) Candidiasis of vagina Headache disorder (07/2016) History of dysmenorrhea Spontaneous (2018) Vaginal delivery (12/09/19) Vertigo (07/2016) Vestibular dysfunction (08/2016) Surgical History (Updated 12/31/21 @ 10:12 by Giorgio Harris) History of third molar tooth extraction Family History (Updated 12/31/21 @ 10:14 by Giorgio Harris) Father Diabetes, Onset Age: 20 Stroke, Onset Age: 40 Sister Ovarian cyst Other High blood pressure High cholesterol Parkinsonism Social History (Updated 06/20/22 @ 12:15 by Jeannine Yepez CNM) Narrative: SOCIAL HISTORY: 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 Marital status: . Partner: Carlitos. Lives with: and child. Pets: No. Druze/cultural needs: No. Chemical or radiation exposure: No. Pre- tobacco use: No. Pre- alcohol use: No. Current tobacco use: No. Current alcohol use: No. Recreational drug use: No. Dietary restrictions: No. Blood transfusion acceptable in an emergency: Yes. FAMILY AND GENETIC HISTORY: History of 1 miscarriage Denies history of defects PSYCHOSOCIAL HISTORY: History of depression or currently depressed: No. Current physical, emotional, or sexual mistreatment: No. Problems that will make it hard to make it to appointments: No. Smoking Status: Never smoker Meds Home Medications and Allergies Home Medications Medication Instructions Recorded Confirmed Type docosahexaenoic acid 200 mg mg PO 01/11/22 07/09/22 History capsule ( DHA) Allergies Allergy/AdvReac Type Severity Reaction Status Date / Time No Known Drug Allergies Allergy Verified 07/10/22 05:06 Results Labs Labs: Laboratory Results - last 24 hr 07/10/22 04:59 SARS-CoV-2 (PCR) Negative SARS-CoV-2 Vital Signs Vital Signs: Last Vital Signs Temp 97.8 F 07/10/22 05:47 Pulse 92 07/10/22 06:02 Resp 18 07/10/22 05:47 BP 123/58 L 07/10/22 06:02 Pulse Ox 97 07/10/22 05:57 Weight: 68.039 kg Height: 162.56 cm Anesthesia Procedures Epidural Insertion Patient Location: OB Start Time: 05:20 Stop Time: 06:03 Start Date: 07/10/22 Stop Date: 07/10/22 Reason for Block: procedure for pain Patient Position: sitting Performed By: Derrick Hirsch Preanesthetic Checklist: IV checked, risks and benefits discussed, surgical consent, monitors and equipment checked, pre-op evaluation, timeout performed and anesthesia consent Prep: chlorhexidine gluconate Monitoring: blood pressure monitoring, continuous pulse oximetry and heart rate Approach: midline Vertebral Space: lumbar (1-5) Needle Type: Tuohy needle Injection Technique: continuous catheter Needle gauge: 17 Needle Length (cm): 10 cm Needle Insertion Depth (cm): 7 Catheter Gauge: 19 Catheter Type: multi-orifice Catheter at skin depth (cm): 13 Test Dose Result: negative and lidocaine 1.5% with epinephrine 1 to 200,000
[2022-07-10] MEDS: LACTATED RINGERS 1000 ML 1,000 ML 125 ML IV (06:06)
[2022-07-10] MEDS: PHENYLEPHRINE 100 MCG/ML SYRINGE IVP ×2 (06:50→07:00)
[2022-07-10] MEDS: OXYTOCIN 30 unit/500 ML in NS 30 UNIT/500 ML BAG 325 UNIT IVPB (08:50)
[2022-07-10] MEDS: LIDOCAINE 1 % PF 30 ML INJECTION (09:03)
--- NOTE | 2022-07-10 09:47 | P.OBPRC_ITS ---
Procedure Delivery date: 07/10/22 Procedure Done: Global Intrapartal Events: None Delivery monitor: external FHT and external uterine Route of delivery: Laceration description: Perineal - 1st Degree Delivery repair: Vicryl Estimated blood loss (mL): 250 Anesthesia type: Epidural Narrative: The patient is a 32 year-old admitted on 07/10/2022 at 40 Weeks, 1 Days gestation for contractions .? Cervical exam on admission was 5cm/ 60% effaced with membranes intact in vertex presentation.? Contractions were every 2-5 minutes.? heart rate demonstrated baseline 135 bpm with moderate variability, + accelerations, - decelerations; a category 1 tracing.? SROM occurred at delivery with clear fluid and terminal meconium. ? Labor Analgesia:? epidural ? Pitocin:? yes ? Labor onset:? 0420 ? Complete:?0748 ? Pushing:? 0758 ? heart tones during second stage were reassuring throughout. Variable and early deceleration noted during pushing with good return to baseline at end of contraction and moderate variability with accels. ? Patient was admitted for labor and progressed normally. SROM noted at delivery with clear fluid. Patient was complete at 0748 and pushing at 0758. of a viable female at 0845 in left tilt. Vertex delivered LILIYA. No nuchal cord or shoulder. Body delivered easily and without incident. Infant passed to mothers abdomen with a vigorous cry. Cord was clamped and cut at > 5 minutes. APGARS were 8 at one minute and 9 at five minutes respectively. Mouth was bulb suctioned. Intact placenta with a 3 vessel cord delivered spontaneously at 0852. Fundus firm. 1st degree identified and repaired in typical fashion. QBL 250 cc. Mother and baby stable; mother plans to breastfeed. weight pending. ? Placenta delivered spontaneously and complete at 0852 with a 3 vessel cord. ? Mother and infant were stable after delivery. ? Lacerations:? 1st degree, repaired with 3.0 vicryl. ? Blood loss: 250 mL. Blood loss measurement type: QBL ? Sponge and needles counts are correct. James ARIAS with supervision by Jeannine Yepez CNM [place] Infant Gender: Female presentation: vertex Placental Delivery Description: Spontaneous Cord Description: 3 Vessels OB Vag Delivery Procedures Additional Procedures ECV: No Cook Catheter Insertion: No NST: No D&C: No Laceration Repair: Yes Tubal Ligation : No Other: No
[2022-07-10] MEDS: IBUPROFEN 600 MG TABLET PO ×2 (12:43→18:41)
[2022-07-10] MEDS: ACETAMINOPHEN 500 MG TABLET 1000 MG PO ×2 (16:09→22:14)
[2022-07-11] MEDS: IBUPROFEN 600 MG TABLET PO ×2 (00:44→11:56)
[2022-07-11 00:49] VITALS: BP 116/75; PULSE 68; RESP 16; TEMP 36.4; O2SAT 97
[2022-07-11 03:44] VITALS: BP 102/67; PULSE 73; RESP 16; TEMP 36.4; O2SAT 97
--- NOTE | 2022-07-11 08:42 | P.DS_ITS ---
DS: Providers Provider Date Seen: 07/11/22 Date of admission: 07/10/22 04:27 Primary care physician: Linda Fernandes PA-C Admitting Clinician: Jeannine Yepez CNM Attending Physician on discharge: Jeannine Yepez CNM DS: Diagnosis Discharge Diagnosis (1) care and examination immediately after delivery: Status: Acute (2) Lactating mother: Status: Acute Exam Narrative: Exam Narrative: GENERAL APPEARANCE:? normal affect, alert, no distress? MOOD:? appropriate? CHEST:? clear to auscultation? HEART:? regular rate and rhythm? ABDOMEN:? soft, non-tender the uterine fundus is 1 cm below Umbilicus, Midline and is appropriate for the stage of recovery.? PERINEUM:? mild edema of the perineum, there is a Perineal Laceration,? 1st degree that is healing well.? EXTREMITIES:? normal and no edema? Const: Vital Signs, click to edit/add: Vital Signs - 24 hr 07/10/22 08:51 07/10/22 09:06 07/10/22 09:21 Temperature Pulse Rate 71 80 82 Pulse Rate [Pulse Oximeter] Respiratory Rate Blood Pressure 106/58 L 97/52 L 96/57 L Blood Pressure [Ri ght Arm] P[facility]xim[facility] 07/10/22 09:36 07/10/22 09:51 07/10/22 10:06 Temperature Pulse Rate 66 67 67 Pulse Rate [Pulse Oximeter] Respiratory Rate Blood Pressure 103/57 L 102/53 L 101/54 L Blood Pressure [Ri ght Arm] Pulse Oximetry [facility] 07/10/22 10:21 07/10/22 10:36 07/10/22 10:51 Temperature Pulse Rate 68 74 75 Pulse Rate [Pulse Oximeter] Respiratory Rate Blood Pressure 106/56 L 107/57 L 105/58 L Blood Pressure [Ri ght Arm] Pulse Oximetry [facility] 07/10/22 11:06 07/10/22 11:21 07/10/22 11:00 Temperature 97.8 F Pulse Rate 99 75 Pulse Rate [Pulse Oximeter] Respiratory Rate Blood Pressure 103/57 L 105/57 L Blood Pressure [Ri ght Arm] Pulse Oximetry Oxygen Delivery [facility] 07/10/22 11:06 07/10/22 16:06 07/10/22 16:09 Temperature 97.8 F 97.7 F 97.7 F Pulse Rate Pulse Rate [Pulse Oximeter] 68 Respiratory Rate 16 Blood Pressure Blood Pressure [Ri ght Arm] 119/74 Pulse Oximetry 97 Oxygen Delivery Me thod Room Air 07/10/22 20:00 07/11/22 00:49 07/11/22 03:44 Temperature 97.6 F 97.6 F 97.5 F L Pulse Rate Pulse Rate [Pulse Oximeter] 68 68 73 Respiratory Rate 16 16 16 Blood Pressure Blood Pressure [Ri ght Arm] 109/69 116/75 102/67 Pulse Oximetry 97 97 97 Oxygen Delivery Me thod Room Air Room Air Room Air Documenting provider has reviewed patient's vital signs: yes OB - DS: Summary Hospital Course Hospital Course: The patient is a 32 year old G 3 P 2 at 40 1/7 weeks gestation that was admitted to the Center on 07/10/22 for labor. She had an uncomplicated vaginal delivery. She delivered a viable female infant. the patient has done well. The pain is well controlled with current medications.? She has no new complaints.? Urinary output is adequate and she is voiding without difficulty.? Has a good appetite, is tolerating a general diet, is passing flatus, and has not yet had a bowel movement.? Has scant amount of rubra lochia.? She is ambulating well. She is and reports it is going well. Peripartum Data delivery method: Vaginal Laceration description: Perineal - 1st Degree complications: none [place] Infant Gender: Female Discharge Plan: Home Status at Discharge Functional status at discharge: independent ambulation Overall status at discharge: patient is progressing back to baseline Time Spent with Patient Time attestation: Total time spent providing and/or coordinating discharge services: Time spent: Less than 30 minutes Discharge Plan Discharge Disposition: Home, Self-Care Date of Admission: 07/10/22 04:27 Attending Provider on Discharge: Jeannine Yepez Primary Care Provider: Linda Fernandes Condition: Stable Anticipated Discharge Date/Time: 07/11/22 12:00 Discharge Medications: New acetaminophen 500 mg Tablet 1,000 mg PO Q6H PRN (Reason: pain/fever) Qty: 0 0RF docusate sodium 100 mg Capsule 100 mg PO DAILY Qty: 90 0RF ibuprofen 600 mg Tablet 600 mg PO Q6H PRNQty: 60 0RF Continued DHA 200 mg capsule PO valacyclovir [Valtrex] 500 mg tablet 500 mg PO BID PRN (Reason: Oral cold sores) Qty: 15 2RF Rx Instructions: Take 1 tab twice daily for 3-5 days. Take at onset of symptoms. Discharge Orders: Discharge Order (Routine); Ordered 07/11/22 Ordered By: Jeannine Yepez Patient Education: OB Vaginal/Breast Feeding Additional Instructions: Discharge instructions were reviewed with the patient including signs and symptoms of infection and home going medications Nothing vaginally for 6 weeks: no tampons or intercourse Off Work or School for 6 weeks 2-week visit: discuss infant feeding concerns, review control options and screen for anxiety/depression. 6-week visit for an annual exam. consultation services are available to all mothers and babies for the first year after delivery.? To make an appointment, please call [phone]. Activity Level: Activity as Tolerated Discharge Diet: Regular Follow Up Appointments: [facility] [Provider Group] (2 and 6 weeks ) Forms: [employer] Info Instructions
[2022-07-11 09:00] VITALS: BP 109/75; PULSE 78; RESP 16; TEMP 36.7; O2SAT 96
[2022-07-11] MEDS: ACETAMINOPHEN 500 MG TABLET 1000 MG PO (09:30)
[2022-07-11] MEDS: DOCUSATE SODIUM 100 MG CAPSULE PO (09:30)
== END 2022-07-11 12:00 | disposition home or self-care (01) | DRG 807 ==
LOC: OB OUT 04:27 → OB 04:30
PROVIDERS: Admitting Provider Advanced Practice Midwife; PCP Physician Assistant Medical; Visit Provider Advanced Practice Midwife
DX: O70.0 First degree perineal laceration during delivery (principal); Z37.0 Single live birth; Z3A.40 40 weeks gestation of pregnancy
CPT/HCPCS: 01967; 87635; 99213; A9270; J2001; J2370; J2405; J2795; J7120